=== PATIENT | female | born 1940 | race Caucasian/White ===

== ENCOUNTER 2020-06-21 11:11 | Inpatient (IN) | payer OTHER, BC, SELFPAY ==
[~2020-06-21] VITALS: Ht 157.5 cm; Wt 106.6 kg
[2020-06-21 11:11] VITALS: BP_SYST 94
[2020-06-21] MEDS ORDERED: DEXAMETHASONE SOD PHOSPHATE 4 MG/ML VIAL IVP ONE (11:15)
[2020-06-21] MEDS ORDERED: DEXAMETHASONE SOD PHOSPHATE 4 MG/ML VIAL ONE (11:23)
[2020-06-21] MEDS ORDERED: DILTIAZEM HCL 60 MG TABLET PO ONE (11:45)
[2020-06-21] MEDS ORDERED: DILTIAZEM HCL 25 MG/5 ML VIAL IVP ONE (11:45)
[2020-06-21 12:07] LABS: BASOPHILS % (AUTO) 0.8 % (0.0-2.0); HEMATOCRIT 29.7 % (36-48); HEMOGLOBIN 9.1 g/dL (12.0-16.0); LYMPHOCYTES # (AUTO) 0.3 K/uL (1.0-5.5); LYMPHOCYTES % (AUTO) 7.5 % (20.5-51.5); MEAN CORPUSCULAR HEMOGLOBIN 27 pg (27-31); MEAN CORPUSCULAR HGB CONC 31 % (32-36); MEAN CORPUSCULAR VOLUME 89 fL (79.0-98.0); MONOCYTES # (AUTO) 0.3 K/uL (0.0-1.0); MONOCYTES % (AUTO) 7.5 % (1.7-9.3); NEUTROPHILS # (AUTO) 3.4 K/uL (1.8-7.7); NEUTROPHILS % (AUTO) 84.2 % (40.0-70.0); PLATELET COUNT (AUTO) 291 K/uL (130-430); RED BLOOD CELL COUNT(AUTO) 3.32 MIL/uL (4.2-6.2); RED CELL DISTRIBUTION WIDTH 15.1 % (9.0-15.0)
[2020-06-21] MEDS ORDERED: LEVO88TA PO (13:02)
[2020-06-21] MEDS ORDERED: ZIN220 PO (13:02)
[2020-06-21] MEDS ORDERED: DOCU-144 PO (13:02)
[2020-06-21] MEDS ORDERED: DABI150C PO (13:02)
[2020-06-21] MEDS ORDERED: MELA10CA PO (13:02)
[2020-06-21] MEDS ORDERED: GUAI100L32 PO (13:02)
[2020-06-21] MEDS ORDERED: OMEP20TA20 PO (13:02)
[2020-06-21] MEDS ORDERED: CHOL200075 PO (13:02)
[2020-06-21] MEDS ORDERED: ACET325C6 PO (13:02)
[2020-06-21] MEDS ORDERED: ALL300 PO (13:02)
[2020-06-21] MEDS ORDERED: ASC500 PO (13:02)
[2020-06-21] MEDS ORDERED: FLUD0.1T PO (13:02)
[2020-06-21] MEDS ORDERED: METH4TAB17 PO (13:02)
[2020-06-21] MEDS ORDERED: DEXT1LOZ24 PO (13:02)
[2020-06-21] MEDS ORDERED: FURO20TA4 PO (13:02)
[2020-06-21] MEDS ORDERED: VENL75TA4 PO (13:02)
[2020-06-21] MEDS ORDERED: FERR325T30 PO (13:02)
[2020-06-21] MEDS ORDERED: ONDA4TAB5 PO (13:02)
[2020-06-21 13:20] LABS: ANION GAP 9 (5-15); CALCIUM 8.3 mg/dL (8.4-11.0); CHLORIDE 99 mmol/L (98-107); CREATININE 0.48 mg/dL (0.55-1.30); GLUCOSE 109 mg/dL (70-99); POTASSIUM 3.1 mmol/L (3.5-5.1); SODIUM SERUM 144 mmol/L (136-145); UREA NITROGEN, BLOOD 11 mg/dL (8-21)
[2020-06-21 13:22] LABS: ALANINE AMINOTRANSFERASE 13 U/L (12-78); ALBUMIN 2.6 g/dL (3.4-4.8); ASPARTATE AMINOTRANSFERASE 33 U/L (10-37); TOTAL BILIRUBIN 0.5 mg/dL (0.0-1.0)
[2020-06-21 13:50] LABS: C-REACTIVE PROTEIN QUANT 3.8 mg/dL (0-0.5)
[2020-06-21] MEDS ORDERED: AZITHROMYCIN 500 MG in NS 250 ML IV ONE (14:00)
[2020-06-21] MEDS ORDERED: LEVOFLOXACIN 500 MG/D5W 100 ML IV ONE (14:00)
[2020-06-21] MEDS ORDERED: AZITHROMYCIN 500 MG/VIAL (ZITHROMAX) IV ONE (15:54)
[2020-06-21] MEDS ORDERED: POTASSIUM CHLORIDE 40 MEQ, LIDOCAINE JECT 2% PF 100 MG 50 MG in NS 250 ML IV ONE (16:15)
[2020-06-21] MEDS ORDERED: BENZOCAINE/MENTHOL 1 EACH LOZENGE MM PRN (16:15)
[2020-06-21] MEDS ORDERED: ONDANSETRON 4 MG ODT TAB PO PRN (16:30)
[2020-06-21 16:41] VITALS: BP_SYST 139
[2020-06-21 17:27] LABS: INR 1.2 (0.8-1.2); PROTHROMBIN TIME 12.7 SECS (9.5-12.5)
[2020-06-21] MEDS: PANTOPRAZOLE SODIUM 40 MG TAB PO SCH (21:00)
[2020-06-21] MEDS: CEFEPIME 0.5 GM in D5W 50 ML IV SCH (21:41)
[2020-06-21] MEDS: FERROUS SULFATE 325 MG TABLET.DR PO SCH (21:42)
[2020-06-22] VITALS (18 sets, daily range): BP systolic 106–158
[2020-06-22] MEDS: LEVOTHYROXINE SODIUM 0.088 MG TABLET PO SCH (07:00)
[2020-06-22] MEDS ORDERED: VENLAFAXINE HCL 75 MG TABLET PO SCH (09:00)
[2020-06-22] MEDS: KCL 10 mEq in D5/0.45NS 1000mL 1,000 ML IV SCH ×2 (09:25→22:05)
[2020-06-22] MEDS: CEFEPIME 0.5 GM in D5W 50 ML IV SCH ×2 (09:25→22:00)
[2020-06-22] MEDS: ALLOPURINOL 300 MG TABLET (ZYLOPRIM) PO SCH (09:26)
[2020-06-22] MEDS: FERROUS SULFATE 325 MG TABLET.DR PO SCH ×2 (09:26→21:30)
[2020-06-22] MEDS: CHOLECALCIFEROL (VITAMIN D3) 2,000 UNIT TABLET PO SCH (09:26)
[2020-06-22] MEDS: DOCUSATE SODIUM 100 MG CAPSULE PO SCH (09:26)
[2020-06-22] MEDS: PANTOPRAZOLE SODIUM 40 MG TAB PO SCH ×2 (09:26→21:30)
[2020-06-22] MEDS: FLUDROCORTISONE ACETATE 0.1 MG TABLET( FLORINEF) PO SCH (09:26)
[2020-06-22] MEDS: ASCORBIC ACID 500 MG TABLET PO SCH (09:27)
[2020-06-22] MEDS ORDERED: DILTIAZEM HCL 180 MG CAP.SR.24H PO ONE (09:30)
[2020-06-22 10:15] LABS: BASOPHILS % (AUTO) 0.1 % (0.0-2.0); LYMPHOCYTES # (AUTO) 0.3 K/uL (1.0-5.5); LYMPHOCYTES % (AUTO) 6.5 % (20.5-51.5); MEAN CORPUSCULAR HEMOGLOBIN 27 pg (27-31); MEAN CORPUSCULAR HGB CONC 30 % (32-36); MEAN CORPUSCULAR VOLUME 90 fL (79.0-98.0); MONOCYTES # (AUTO) 0.3 K/uL (0.0-1.0); MONOCYTES % (AUTO) 5.8 % (1.7-9.3); NEUTROPHILS % (AUTO) 87.6 % (40.0-70.0); PLATELET COUNT (AUTO) 258 K/uL (130-430); RED BLOOD CELL COUNT(AUTO) 3.34 MIL/uL (4.2-6.2); RED CELL DISTRIBUTION WIDTH 15.2 % (9.0-15.0); WHITE BLOOD COUNT (AUTO) 4.6 K/uL (4.8-10.8)
[2020-06-22 10:47] LABS: ALANINE AMINOTRANSFERASE 13 U/L (12-78); ALBUMIN 2.3 g/dL (3.4-4.8); ANION GAP 7 (5-15); ASPARTATE AMINOTRANSFERASE 30 U/L (10-37); CALCIUM 8.4 mg/dL (8.4-11.0); CHLORIDE 99 mmol/L (98-107); GLUCOSE 116 mg/dL (70-99); POTASSIUM 3.5 mmol/L (3.5-5.1); SODIUM SERUM 144 mmol/L (136-145); THYROID STIMULATING HORMONE 0.72 uIu/mL (0.36-3.74); TOTAL BILIRUBIN 0.7 mg/dL (0.0-1.0); UREA NITROGEN, BLOOD 12 mg/dL (8-21)
[2020-06-22] MEDS: ENOXAPARIN SODIUM 40 MG/0.4 ML SYRINGE SUBCUT SCH (11:45)
[2020-06-22] MEDS ORDERED: FUROSEMIDE 20 MG/2 ML VIAL IVP ONE (11:45)
[2020-06-22 13:20] LABS: BILIRUBIN,URINE NEGATIVE (NEGATIVE); BLOOD, URINE 1+ (NEGATIVE); CLARITY/URINE CLOUDY (CLEAR); COLOR,URINE YELLOW (YELLOW); GLUCOSE,URINE NEGATIVE (NEGATIVE); KETONES,URINE 1+ (NEGATIVE); LEUKOCYTE ESTERASE ,URINE 1+ (NEGATIVE); NITRITE, URINE NEGATIVE (NEGATIVE); PH,URINE 6.5 (5.0-8.0); PROTEIN URINE NEGATIVE (NEGATIVE); UROBILINOGEN,URINE 0.2 (0.2-1.0)
[2020-06-22] MEDS ORDERED: ENOXAPARIN SODIUM 40 MG/0.4 ML SYRINGE SUBCUT ONE ×2 (13:45→14:15)
[2020-06-22 14:21] LABS: BACTERIA,URINE MANY /HPF (None Seen)
[2020-06-22] MEDS ORDERED: CEFEPIME 1 GM/VIAL (MAXIPIME) ONE (22:46)
[2020-06-23] VITALS (24 sets, daily range): BP systolic 99–147
[2020-06-23] MEDS: KCL 10 mEq in D5/0.45NS 1000mL 1,000 ML IV SCH ×2 (00:41→04:30)
[2020-06-23] MEDS: LEVOTHYROXINE SODIUM 0.088 MG TABLET PO SCH (06:48)
[2020-06-23 06:51] LABS: BASOPHILS % (AUTO) 0.1 % (0.0-2.0); HEMATOCRIT 27.5 % (36-48); HEMOGLOBIN 8.6 g/dL (12.0-16.0); LYMPHOCYTES # (AUTO) 0.3 K/uL (1.0-5.5); LYMPHOCYTES % (AUTO) 4.7 % (20.5-51.5); MEAN CORPUSCULAR HEMOGLOBIN 28 pg (27-31); MEAN CORPUSCULAR HGB CONC 31 % (32-36); MEAN CORPUSCULAR VOLUME 88 fL (79.0-98.0); MONOCYTES # (AUTO) 0.4 K/uL (0.0-1.0); MONOCYTES % (AUTO) 5.5 % (1.7-9.3); NEUTROPHILS # (AUTO) 5.9 K/uL (1.8-7.7); NEUTROPHILS % (AUTO) 89.7 % (40.0-70.0); PLATELET COUNT (AUTO) 256 K/uL (130-430); RED BLOOD CELL COUNT(AUTO) 3.13 MIL/uL (4.2-6.2); RED CELL DISTRIBUTION WIDTH 15.1 % (9.0-15.0); WHITE BLOOD COUNT (AUTO) 6.6 K/uL (4.8-10.8)
[2020-06-23 07:26] LABS: ALANINE AMINOTRANSFERASE 16 U/L (12-78); ALBUMIN 2.2 g/dL (3.4-4.8); ANION GAP 1 (5-15); ASPARTATE AMINOTRANSFERASE 31 U/L (10-37); CHLORIDE 100 mmol/L (98-107); GLUCOSE 131 mg/dL (70-99); SODIUM SERUM 144 mmol/L (136-145); TOTAL BILIRUBIN 0.6 mg/dL (0.0-1.0); UREA NITROGEN, BLOOD 11 mg/dL (8-21)
[2020-06-23 07:50] LABS: C-REACTIVE PROTEIN QUANT 3.1 mg/dL (0-0.5)
[2020-06-23] MEDS: CEFEPIME 0.5 GM in D5W 50 ML IV SCH ×2 (09:00→22:00)
[2020-06-23] MEDS: ENOXAPARIN SODIUM 40 MG/0.4 ML SYRINGE SUBCUT SCH (09:00)
[2020-06-23] MEDS: ALLOPURINOL 300 MG TABLET (ZYLOPRIM) PO SCH (09:00)
[2020-06-23] MEDS: CHOLECALCIFEROL (VITAMIN D3) 2,000 UNIT TABLET PO SCH (09:00)
[2020-06-23] MEDS: DILTIAZEM HCL 180 MG CAP.SR.24H PO SCH (09:00)
[2020-06-23] MEDS: ASCORBIC ACID 500 MG TABLET PO SCH (09:00)
[2020-06-23] MEDS: FERROUS SULFATE 325 MG TABLET.DR PO SCH ×2 (09:00→20:20)
[2020-06-23] MEDS: FLUDROCORTISONE ACETATE 0.1 MG TABLET( FLORINEF) PO SCH (09:00)
[2020-06-23] MEDS: Effexor 37.5 MG TAB PO SCH (09:00)
[2020-06-23] MEDS: DOCUSATE SODIUM 100 MG CAPSULE PO SCH (09:00)
[2020-06-23] MEDS: PANTOPRAZOLE SODIUM 40 MG TAB PO SCH ×2 (09:00→20:20)
[2020-06-23] MEDS ORDERED: POTASSIUM CHLORIDE 40 MEQ, LIDOCAINE JECT 2% PF 100 MG 50 MG in NS 250 ML IV ONE (12:00)
[2020-06-23] MEDS ORDERED: POTASSIUM CHLORIDE 20 MEQ/PKT PACKET PO ONE (18:00)
[2020-06-24] VITALS (25 sets, daily range): BP systolic 90–125
[2020-06-24] MEDS: KCL 10 mEq in D5/0.45NS 1000mL 1,000 ML IV SCH ×2 (02:59→15:12)
[2020-06-24 07:01] LABS: BASOPHILS % (AUTO) 0.1 % (0.0-2.0); HEMATOCRIT 26.4 % (36-48); HEMOGLOBIN 8.1 g/dL (12.0-16.0); LYMPHOCYTES # (AUTO) 0.3 K/uL (1.0-5.5); LYMPHOCYTES % (AUTO) 6.4 % (20.5-51.5); MEAN CORPUSCULAR HEMOGLOBIN 27 pg (27-31); MEAN CORPUSCULAR HGB CONC 31 % (32-36); MEAN CORPUSCULAR VOLUME 89 fL (79.0-98.0); MONOCYTES # (AUTO) 0.2 K/uL (0.0-1.0); NEUTROPHILS # (AUTO) 3.6 K/uL (1.8-7.7); NEUTROPHILS % (AUTO) 89.5 % (40.0-70.0); PLATELET COUNT (AUTO) 190 K/uL (130-430); RED BLOOD CELL COUNT(AUTO) 2.96 MIL/uL (4.2-6.2); RED CELL DISTRIBUTION WIDTH 15.7 % (9.0-15.0)
[2020-06-24] MEDS: LEVOTHYROXINE SODIUM 0.088 MG TABLET PO SCH (07:03)
[2020-06-24 07:45] LABS: ALANINE AMINOTRANSFERASE 13 U/L (12-78); ASPARTATE AMINOTRANSFERASE 35 U/L (10-37); CHLORIDE 101 mmol/L (98-107); GLUCOSE 153 mg/dL (70-99); POTASSIUM 3.6 mmol/L (3.5-5.1); SODIUM SERUM 142 mmol/L (136-145); TOTAL BILIRUBIN 0.4 mg/dL (0.0-1.0); UREA NITROGEN, BLOOD 12 mg/dL (8-21)
[2020-06-24 08:43] LABS: ANION GAP 0 (5-15)
[2020-06-24] MEDS: DILTIAZEM HCL 180 MG CAP.SR.24H PO SCH (10:29)
[2020-06-24] MEDS: CEFEPIME 0.5 GM in D5W 50 ML IV SCH ×2 (10:29→20:55)
[2020-06-24] MEDS: ALLOPURINOL 300 MG TABLET (ZYLOPRIM) PO SCH (10:29)
[2020-06-24] MEDS: PANTOPRAZOLE SODIUM 40 MG TAB PO SCH ×2 (10:30→20:55)
[2020-06-24] MEDS: Effexor 37.5 MG TAB PO SCH (10:30)
[2020-06-24] MEDS: ASCORBIC ACID 500 MG TABLET PO SCH (10:30)
[2020-06-24] MEDS: FERROUS SULFATE 325 MG TABLET.DR PO SCH ×2 (10:30→20:55)
[2020-06-24] MEDS: FLUDROCORTISONE ACETATE 0.1 MG TABLET( FLORINEF) PO SCH (10:30)
[2020-06-24] MEDS: DOCUSATE SODIUM 100 MG CAPSULE PO SCH (10:30)
[2020-06-24] MEDS: CHOLECALCIFEROL (VITAMIN D3) 2,000 UNIT TABLET PO SCH (10:30)
[2020-06-24] MEDS: ENOXAPARIN SODIUM 40 MG/0.4 ML SYRINGE SUBCUT SCH (10:32)
[2020-06-25] VITALS (24 sets, daily range): BP systolic 100–144
[2020-06-25] MEDS: KCL 10 mEq in D5/0.45NS 1000mL 1,000 ML IV SCH ×2 (03:00→17:09)
[2020-06-25] MEDS: LEVOTHYROXINE SODIUM 0.088 MG TABLET PO SCH ×2 (06:39→07:30)
[2020-06-25] MEDS ORDERED: ENOXAPARIN SODIUM 60 MG/0.6 ML SYRINGE SUBCUT SCH (09:00)
[2020-06-25] MEDS ORDERED: ENOXAPARIN SODIUM 80 MG/0.8 ML SYRINGE SUBCUT SCH (09:00)
[2020-06-25 09:38] LABS: ALANINE AMINOTRANSFERASE 15 U/L (12-78); ANION GAP 0 (5-15); ASPARTATE AMINOTRANSFERASE 25 U/L (10-37); CALCIUM 7.8 mg/dL (8.4-11.0); CHLORIDE 100 mmol/L (98-107); CREATININE 0.34 mg/dL (0.55-1.30); GLUCOSE 119 mg/dL (70-99); POTASSIUM 3.5 mmol/L (3.5-5.1); SODIUM SERUM 142 mmol/L (136-145); TOTAL BILIRUBIN 0.4 mg/dL (0.0-1.0); UREA NITROGEN, BLOOD 12 mg/dL (8-21)
[2020-06-25] MEDS: CHOLECALCIFEROL (VITAMIN D3) 2,000 UNIT TABLET PO SCH (10:04)
[2020-06-25] MEDS: DILTIAZEM HCL 180 MG CAP.SR.24H PO SCH (10:04)
[2020-06-25] MEDS: ALLOPURINOL 300 MG TABLET (ZYLOPRIM) PO SCH (10:04)
[2020-06-25] MEDS: DOCUSATE SODIUM 100 MG CAPSULE PO SCH (10:04)
[2020-06-25] MEDS: ASCORBIC ACID 500 MG TABLET PO SCH (10:05)
[2020-06-25] MEDS: FLUDROCORTISONE ACETATE 0.1 MG TABLET( FLORINEF) PO SCH (10:05)
[2020-06-25] MEDS: CEFEPIME 0.5 GM in D5W 50 ML IV SCH (10:05)
[2020-06-25] MEDS: FERROUS SULFATE 325 MG TABLET.DR PO SCH ×2 (10:05→21:04)
[2020-06-25] MEDS: PANTOPRAZOLE SODIUM 40 MG TAB PO SCH ×2 (10:05→21:04)
[2020-06-25] MEDS: Effexor 37.5 MG TAB PO SCH (10:06)
[2020-06-25] MEDS ORDERED: ALBUMIN HUMAN 25% 100 ML IV ONE (16:30)
[2020-06-25] MEDS: MEROPENEM 500 MG in NS 50 ML IV SCH (20:49)
[2020-06-26] VITALS (24 sets, daily range): BP systolic 111–143
[2020-06-26] MEDS: MEROPENEM 500 MG in NS 50 ML IV SCH ×3 (05:08→21:00)
[2020-06-26] MEDS: KCL 10 mEq in D5/0.45NS 1000mL 1,000 ML IV SCH ×3 (06:15→18:16)
[2020-06-26 06:49] LABS: BASOPHILS % (AUTO) 0.1 % (0.0-2.0); EOSINOPHILS % (AUTO) 0.4 % (0.0-4.0); HEMATOCRIT 25.3 % (36-48); HEMOGLOBIN 7.6 g/dL (12.0-16.0); LYMPHOCYTES # (AUTO) 0.3 K/uL (1.0-5.5); LYMPHOCYTES % (AUTO) 8.9 % (20.5-51.5); MEAN CORPUSCULAR HEMOGLOBIN 27 pg (27-31); MEAN CORPUSCULAR HGB CONC 30 % (32-36); MEAN CORPUSCULAR VOLUME 89 fL (79.0-98.0); MONOCYTES # (AUTO) 0.2 K/uL (0.0-1.0); NEUTROPHILS # (AUTO) 2.8 K/uL (1.8-7.7); NEUTROPHILS % (AUTO) 84.6 % (40.0-70.0); PLATELET COUNT (AUTO) 127 K/uL (130-430); RED BLOOD CELL COUNT(AUTO) 2.85 MIL/uL (4.2-6.2); RED CELL DISTRIBUTION WIDTH 15.6 % (9.0-15.0); WHITE BLOOD COUNT (AUTO) 3.3 K/uL (4.8-10.8)
[2020-06-26] MEDS: LEVOTHYROXINE SODIUM 0.088 MG TABLET PO SCH (07:00)
[2020-06-26 07:25] LABS: ALANINE AMINOTRANSFERASE 16 U/L (12-78); ALBUMIN 2.2 g/dL (3.4-4.8); ANION GAP 0 (5-15); ASPARTATE AMINOTRANSFERASE 20 U/L (10-37); CALCIUM 7.9 mg/dL (8.4-11.0); CHLORIDE 101 mmol/L (98-107); CREATININE 0.35 mg/dL (0.55-1.30); GLUCOSE 107 mg/dL (70-99); POTASSIUM 3.8 mmol/L (3.5-5.1); SODIUM SERUM 142 mmol/L (136-145); TOTAL BILIRUBIN 0.4 mg/dL (0.0-1.0); UREA NITROGEN, BLOOD 13 mg/dL (8-21)
[2020-06-26] MEDS ORDERED: MELATONIN 3 MG TABLET PO PRN (08:45)
[2020-06-26] MEDS: DOCUSATE SODIUM 100 MG CAPSULE PO SCH (10:34)
[2020-06-26] MEDS: DILTIAZEM HCL 180 MG CAP.SR.24H PO SCH (10:36)
[2020-06-26] MEDS: ALLOPURINOL 300 MG TABLET (ZYLOPRIM) PO SCH (10:36)
[2020-06-26] MEDS: PANTOPRAZOLE SODIUM 40 MG TAB PO SCH ×2 (10:37→21:00)
[2020-06-26] MEDS: FERROUS SULFATE 325 MG TABLET.DR PO SCH ×2 (10:37→20:59)
[2020-06-26] MEDS: CHOLECALCIFEROL (VITAMIN D3) 2,000 UNIT TABLET PO SCH (10:37)
[2020-06-26] MEDS: FLUDROCORTISONE ACETATE 0.1 MG TABLET( FLORINEF) PO SCH (10:37)
[2020-06-26] MEDS: ASCORBIC ACID 500 MG TABLET PO SCH (10:37)
[2020-06-26] MEDS: Effexor 37.5 MG TAB PO SCH (10:38)
[2020-06-26] MEDS: ENOXAPARIN SODIUM 40 MG/0.4 ML SYRINGE SUBCUT SCH (11:02)
[2020-06-26] MEDS ORDERED: FUROSEMIDE 40 MG/4 ML VIAL IVP ONE (17:00)
[2020-06-26] MEDS ORDERED: ALBUMIN HUMAN 25% 100 ML IV ONE (17:15)
[2020-06-26] MEDS ORDERED: FUROSEMIDE 40 MG/4 ML VIAL ONE (18:04)
[2020-06-27] VITALS (25 sets, daily range): BP systolic 94–132
[2020-06-27] MEDS: MEROPENEM 500 MG in NS 50 ML IV SCH ×3 (06:05→22:54)
[2020-06-27] MEDS: LEVOTHYROXINE SODIUM 0.088 MG TABLET PO SCH (06:09)
[2020-06-27 07:00] LABS: BASOPHILS % (AUTO) 0.2 % (0.0-2.0); EOSINOPHILS # (AUTO) 0.1 K/uL (0.0-0.4); EOSINOPHILS % (AUTO) 1.7 % (0.0-4.0); HEMATOCRIT 24.8 % (36-48); HEMOGLOBIN 7.5 g/dL (12.0-16.0); LYMPHOCYTES # (AUTO) 0.4 K/uL (1.0-5.5); LYMPHOCYTES % (AUTO) 9.6 % (20.5-51.5); MEAN CORPUSCULAR HEMOGLOBIN 27 pg (27-31); MEAN CORPUSCULAR HGB CONC 30 % (32-36); MEAN CORPUSCULAR VOLUME 89 fL (79.0-98.0); MONOCYTES # (AUTO) 0.3 K/uL (0.0-1.0); MONOCYTES % (AUTO) 8.1 % (1.7-9.3); NEUTROPHILS % (AUTO) 80.4 % (40.0-70.0); PLATELET COUNT (AUTO) 114 K/uL (130-430); RED BLOOD CELL COUNT(AUTO) 2.79 MIL/uL (4.2-6.2); RED CELL DISTRIBUTION WIDTH 15.4 % (9.0-15.0); WHITE BLOOD COUNT (AUTO) 3.8 K/uL (4.8-10.8)
[2020-06-27 07:55] LABS: TOTAL IRON BIND. CAPACITY 113 ug/dL (250-450)
[2020-06-27 07:59] LABS: ALANINE AMINOTRANSFERASE 13 U/L (12-78); ALBUMIN 2.4 g/dL (3.4-4.8); ANION GAP 0 (5-15); ASPARTATE AMINOTRANSFERASE 17 U/L (10-37); CALCIUM 8.1 mg/dL (8.4-11.0); CHLORIDE 99 mmol/L (98-107); CREATININE 0.31 mg/dL (0.55-1.30); GLUCOSE 98 mg/dL (70-99); POTASSIUM 3.8 mmol/L (3.5-5.1); SODIUM SERUM 142 mmol/L (136-145); TOTAL BILIRUBIN 0.4 mg/dL (0.0-1.0); UREA NITROGEN, BLOOD 13 mg/dL (8-21)
[2020-06-27] MEDS: ALLOPURINOL 300 MG TABLET (ZYLOPRIM) PO SCH (08:52)
[2020-06-27] MEDS: CHOLECALCIFEROL (VITAMIN D3) 2,000 UNIT TABLET PO SCH (08:53)
[2020-06-27] MEDS: DILTIAZEM HCL 180 MG CAP.SR.24H PO SCH (08:53)
[2020-06-27] MEDS: FERROUS SULFATE 325 MG TABLET.DR PO SCH ×2 (08:54→20:22)
[2020-06-27] MEDS: ASCORBIC ACID 500 MG TABLET PO SCH (08:54)
[2020-06-27] MEDS: DOCUSATE SODIUM 100 MG CAPSULE PO SCH (08:54)
[2020-06-27] MEDS: FLUDROCORTISONE ACETATE 0.1 MG TABLET( FLORINEF) PO SCH (08:54)
[2020-06-27] MEDS: PANTOPRAZOLE SODIUM 40 MG TAB PO SCH ×2 (08:54→20:22)
[2020-06-27] MEDS: ENOXAPARIN SODIUM 40 MG/0.4 ML SYRINGE SUBCUT SCH (08:55)
[2020-06-27] MEDS: Effexor 37.5 MG TAB PO SCH (08:58)
[2020-06-27] MEDS: KCL 10 mEq in D5/0.45NS 1000mL 1,000 ML IV SCH ×2 (14:00→22:55)
[2020-06-28] VITALS (24 sets, daily range): BP systolic 94–142
[2020-06-28] MEDS: LEVOTHYROXINE SODIUM 0.088 MG TABLET PO SCH (06:40)
[2020-06-28] MEDS: MEROPENEM 500 MG in NS 50 ML IV SCH ×3 (06:40→21:56)
[2020-06-28 07:05] LABS: ALANINE AMINOTRANSFERASE 10 U/L (12-78); ASPARTATE AMINOTRANSFERASE 17 U/L (10-37); CREATININE 0.31 mg/dL (0.55-1.30); GLUCOSE 94 mg/dL (70-99); LACTATE DEHYDROGENASE 182 U/L (81-234); POTASSIUM 4.2 mmol/L (3.5-5.1); SODIUM SERUM 142 mmol/L (136-145); TOTAL BILIRUBIN 0.2 mg/dL (0.0-1.0); UREA NITROGEN, BLOOD 13 mg/dL (8-21)
[2020-06-28 07:16] LABS: CHLORIDE 100 mmol/L (98-107)
[2020-06-28 07:19] LABS: ANION GAP < 3 (5-15)
[2020-06-28 07:31] LABS: C-REACTIVE PROTEIN QUANT 4.8 mg/dL (0-0.5)
[2020-06-28 08:02] LABS: BASOPHILS % (AUTO) 0.3 % (0.0-2.0); EOSINOPHILS # (AUTO) 0.4 K/uL (0.0-0.4); EOSINOPHILS % (AUTO) 9.6 % (0.0-4.0); HEMATOCRIT 23.8 % (36-48); LYMPHOCYTES # (AUTO) 0.3 K/uL (1.0-5.5); LYMPHOCYTES % (AUTO) 7.8 % (20.5-51.5); MEAN CORPUSCULAR HEMOGLOBIN 28 pg (27-31); MEAN CORPUSCULAR HGB CONC 32 % (32-36); MEAN CORPUSCULAR VOLUME 90 fL (79.0-98.0); MONOCYTES # (AUTO) 0.2 K/uL (0.0-1.0); MONOCYTES % (AUTO) 5.8 % (1.7-9.3); NEUTROPHILS # (AUTO) 3.1 K/uL (1.8-7.7); NEUTROPHILS % (AUTO) 76.5 % (40.0-70.0); RED BLOOD CELL COUNT(AUTO) 2.65 MIL/uL (4.2-6.2); RED CELL DISTRIBUTION WIDTH 15.9 % (9.0-15.0); WHITE BLOOD COUNT (AUTO) 4.1 K/uL (4.8-10.8)
[2020-06-28 08:14] LABS: FOLATE (FOLIC ACID) 6.2 ng/mL (>3.0)
[2020-06-28 08:27] LABS: HEMOGLOBIN 7.5 g/dL (12.0-16.0)
[2020-06-28] MEDS ORDERED: COMMUNICATION ORDER XX ONE (09:00)
[2020-06-28] MEDS: DOCUSATE SODIUM 100 MG CAPSULE PO SCH (11:12)
[2020-06-28] MEDS: FERROUS SULFATE 325 MG TABLET.DR PO SCH ×2 (11:12→21:56)
[2020-06-28] MEDS: ALLOPURINOL 300 MG TABLET (ZYLOPRIM) PO SCH (11:12)
[2020-06-28] MEDS: FLUDROCORTISONE ACETATE 0.1 MG TABLET( FLORINEF) PO SCH (11:12)
[2020-06-28] MEDS: PANTOPRAZOLE SODIUM 40 MG TAB PO SCH ×2 (11:13→21:56)
[2020-06-28] MEDS: CHOLECALCIFEROL (VITAMIN D3) 2,000 UNIT TABLET PO SCH (11:13)
[2020-06-28] MEDS: DILTIAZEM HCL 180 MG CAP.SR.24H PO SCH (11:15)
[2020-06-28] MEDS: ENOXAPARIN SODIUM 40 MG/0.4 ML SYRINGE SUBCUT SCH (11:15)
[2020-06-28] MEDS: Effexor 37.5 MG TAB PO SCH (11:17)
[2020-06-28] MEDS: KCL 10 mEq in D5/0.45NS 1000mL 1,000 ML IV SCH (11:18)
[2020-06-28] MEDS: ASCORBIC ACID 500 MG TABLET PO SCH (12:10)
[2020-06-28 12:45] LABS: PLATELET COUNT (AUTO) 180 K/uL (130-430)
[2020-06-28] MEDS ORDERED: FUROSEMIDE 40 MG/4 ML VIAL IVP ONE (18:00)
[2020-06-29] VITALS (24 sets, daily range): BP systolic 100–136
[2020-06-29] MEDS: KCL 10 mEq in D5/0.45NS 1000mL 1,000 ML IV SCH ×2 (00:36→13:38)
[2020-06-29] MEDS: MEROPENEM 500 MG in NS 50 ML IV SCH ×2 (06:03→21:09)
[2020-06-29] MEDS: LEVOTHYROXINE SODIUM 0.088 MG TABLET PO SCH (06:03)
[2020-06-29 07:39] LABS: BASOPHILS % (AUTO) 0.2 % (0.0-2.0); EOSINOPHILS % (AUTO) 0.6 % (0.0-4.0); HEMATOCRIT 28.1 % (36-48); HEMOGLOBIN 8.4 g/dL (12.0-16.0); LYMPHOCYTES # (AUTO) 0.4 K/uL (1.0-5.5); LYMPHOCYTES % (AUTO) 6.4 % (20.5-51.5); MEAN CORPUSCULAR HEMOGLOBIN 27 pg (27-31); MEAN CORPUSCULAR HGB CONC 30 % (32-36); MEAN CORPUSCULAR VOLUME 89 fL (79.0-98.0); MONOCYTES # (AUTO) 0.5 K/uL (0.0-1.0); MONOCYTES % (AUTO) 8.5 % (1.7-9.3); NEUTROPHILS # (AUTO) 4.7 K/uL (1.8-7.7); NEUTROPHILS % (AUTO) 84.3 % (40.0-70.0); PLATELET COUNT (AUTO) 153 K/uL (130-430); RED BLOOD CELL COUNT(AUTO) 3.17 MIL/uL (4.2-6.2); RED CELL DISTRIBUTION WIDTH 15.8 % (9.0-15.0); WHITE BLOOD COUNT (AUTO) 5.6 K/uL (4.8-10.8)
[2020-06-29 08:26] LABS: ALANINE AMINOTRANSFERASE 16 U/L (12-78); ALBUMIN 2.1 g/dL (3.4-4.8); ASPARTATE AMINOTRANSFERASE 17 U/L (10-37); CALCIUM 7.8 mg/dL (8.4-11.0); CHLORIDE 99 mmol/L (98-107); CREATININE 0.36 mg/dL (0.55-1.30); GLUCOSE 100 mg/dL (70-99); POTASSIUM 4.1 mmol/L (3.5-5.1); SODIUM SERUM 142 mmol/L (136-145); TOTAL BILIRUBIN 0.4 mg/dL (0.0-1.0); UREA NITROGEN, BLOOD 12 mg/dL (8-21)
[2020-06-29 08:56] LABS: C-REACTIVE PROTEIN QUANT 4.4 mg/dL (0-0.5)
[2020-06-29 09:12] LABS: ANION GAP < 3 (5-15)
[2020-06-29] MEDS: DOCUSATE SODIUM 100 MG CAPSULE PO SCH (10:10)
[2020-06-29] MEDS: DILTIAZEM HCL 180 MG CAP.SR.24H PO SCH (10:10)
[2020-06-29] MEDS: CHOLECALCIFEROL (VITAMIN D3) 2,000 UNIT TABLET PO SCH (10:10)
[2020-06-29] MEDS: FUROSEMIDE 40 MG/4 ML VIAL IVP SCH (10:10)
[2020-06-29] MEDS: FERROUS SULFATE 325 MG TABLET.DR PO SCH ×2 (10:11→21:09)
[2020-06-29] MEDS: FLUDROCORTISONE ACETATE 0.1 MG TABLET( FLORINEF) PO SCH (10:11)
[2020-06-29] MEDS: ASCORBIC ACID 500 MG TABLET PO SCH (10:11)
[2020-06-29] MEDS: ALLOPURINOL 300 MG TABLET (ZYLOPRIM) PO SCH (10:11)
[2020-06-29] MEDS: PANTOPRAZOLE SODIUM 40 MG TAB PO SCH ×2 (10:11→21:09)
[2020-06-29] MEDS: Effexor 37.5 MG TAB PO SCH (10:12)
[2020-06-29] MEDS: ENOXAPARIN SODIUM 40 MG/0.4 ML SYRINGE SUBCUT SCH (10:17)
[2020-06-30] VITALS (22 sets, daily range): BP systolic 116–152
[2020-06-30] MEDS: KCL 10 mEq in D5/0.45NS 1000mL 1,000 ML IV SCH ×2 (03:50→17:10)
[2020-06-30] MEDS: MEROPENEM 500 MG in NS 50 ML IV SCH ×3 (05:22→22:36)
[2020-06-30] MEDS: LEVOTHYROXINE SODIUM 0.088 MG TABLET PO SCH (06:05)
[2020-06-30 07:50] LABS: ALANINE AMINOTRANSFERASE 10 U/L (12-78); ALBUMIN 1.9 g/dL (3.4-4.8); ASPARTATE AMINOTRANSFERASE 21 U/L (10-37); CALCIUM 7.6 mg/dL (8.4-11.0); CREATININE 0.31 mg/dL (0.55-1.30); GLUCOSE 94 mg/dL (70-99); SODIUM SERUM 142 mmol/L (136-145); TOTAL BILIRUBIN 0.4 mg/dL (0.0-1.0); UREA NITROGEN, BLOOD 12 mg/dL (8-21)
[2020-06-30 08:00] LABS: CHLORIDE 98 mmol/L (98-107)
[2020-06-30 08:05] LABS: ANION GAP < 3 (5-15)
[2020-06-30 08:16] LABS: C-REACTIVE PROTEIN QUANT 5.8 mg/dL (0-0.5)
[2020-06-30] MEDS: DOCUSATE SODIUM 100 MG/10 ML UDC PO SCH ×2 (08:35→08:37)
[2020-06-30] MEDS: CHOLECALCIFEROL (VITAMIN D3) 2,000 UNIT TABLET PO SCH (08:35)
[2020-06-30] MEDS: FLUDROCORTISONE ACETATE 0.1 MG TABLET( FLORINEF) PO SCH (08:35)
[2020-06-30] MEDS: ALLOPURINOL 300 MG TABLET (ZYLOPRIM) PO SCH (08:36)
[2020-06-30] MEDS: PANTOPRAZOLE SODIUM 40 MG TAB PO SCH ×2 (08:36→22:37)
[2020-06-30] MEDS: ASCORBIC ACID 500 MG TABLET PO SCH (08:36)
[2020-06-30] MEDS: FERROUS SULFATE 325 MG TABLET.DR PO SCH ×2 (08:36→22:33)
[2020-06-30] MEDS: DOCUSATE SODIUM 100 MG CAPSULE PO SCH (08:36)
[2020-06-30] MEDS: ENOXAPARIN SODIUM 40 MG/0.4 ML SYRINGE SUBCUT SCH (08:42)
[2020-06-30] MEDS: Effexor 37.5 MG TAB PO SCH (08:42)
[2020-06-30] MEDS: FUROSEMIDE 40 MG/4 ML VIAL IVP SCH (09:00)
[2020-06-30] MEDS: DILTIAZEM HCL 180 MG CAP.SR.24H PO SCH (09:00)
[2020-06-30] MEDS: ALPRAZolam 0.25 MG TABLET PO PRN (14:15)
[2020-07-01] VITALS (18 sets, daily range): BP systolic 95–160
[2020-07-01] MEDS: MEROPENEM 500 MG in NS 50 ML IV SCH ×3 (05:46→21:46)
[2020-07-01] MEDS: LEVOTHYROXINE SODIUM 0.088 MG TABLET PO SCH (07:00)
[2020-07-01 08:01] LABS: BASOPHILS % (AUTO) 0.3 % (0.0-2.0); EOSINOPHILS % (AUTO) 0.5 % (0.0-4.0); HEMOGLOBIN 8.4 g/dL (12.0-16.0); LYMPHOCYTES # (AUTO) 0.5 K/uL (1.0-5.5); LYMPHOCYTES % (AUTO) 7.8 % (20.5-51.5); MEAN CORPUSCULAR HEMOGLOBIN 26 pg (27-31); MEAN CORPUSCULAR HGB CONC 30 % (32-36); MEAN CORPUSCULAR VOLUME 88 fL (79.0-98.0); MONOCYTES # (AUTO) 0.5 K/uL (0.0-1.0); MONOCYTES % (AUTO) 7.8 % (1.7-9.3); NEUTROPHILS # (AUTO) 5.6 K/uL (1.8-7.7); NEUTROPHILS % (AUTO) 83.6 % (40.0-70.0); PLATELET COUNT (AUTO) 127 K/uL (130-430); RED CELL DISTRIBUTION WIDTH 15.6 % (9.0-15.0); WHITE BLOOD COUNT (AUTO) 6.7 K/uL (4.8-10.8)
[2020-07-01 08:19] LABS: ALANINE AMINOTRANSFERASE 10 U/L (12-78); ALBUMIN 1.7 g/dL (3.4-4.8); ASPARTATE AMINOTRANSFERASE 16 U/L (10-37); CALCIUM 7.8 mg/dL (8.4-11.0); CHLORIDE 98 mmol/L (98-107); CREATININE 0.33 mg/dL (0.55-1.30); GLUCOSE 96 mg/dL (70-99); POTASSIUM 4.1 mmol/L (3.5-5.1); SODIUM SERUM 142 mmol/L (136-145); TOTAL BILIRUBIN 0.5 mg/dL (0.0-1.0); UREA NITROGEN, BLOOD 12 mg/dL (8-21)
[2020-07-01 08:33] LABS: ANION GAP < 3 (5-15)
[2020-07-01 08:44] LABS: C-REACTIVE PROTEIN QUANT 7.5 mg/dL (0-0.5)
[2020-07-01] MEDS: DOCUSATE SODIUM 100 MG/10 ML UDC PO SCH (09:00)
[2020-07-01] MEDS: ALLOPURINOL 300 MG TABLET (ZYLOPRIM) PO SCH (09:43)
[2020-07-01] MEDS: ASCORBIC ACID 500 MG TABLET PO SCH (09:44)
[2020-07-01] MEDS: CHOLECALCIFEROL (VITAMIN D3) 2,000 UNIT TABLET PO SCH (09:44)
[2020-07-01] MEDS: FERROUS SULFATE 325 MG TABLET.DR PO SCH ×2 (09:44→21:47)
[2020-07-01] MEDS: PANTOPRAZOLE SODIUM 40 MG TAB PO SCH ×2 (09:44→21:44)
[2020-07-01] MEDS: DOCUSATE SODIUM 100 MG CAPSULE PO SCH (09:44)
[2020-07-01] MEDS: FLUDROCORTISONE ACETATE 0.1 MG TABLET( FLORINEF) PO SCH (09:45)
[2020-07-01] MEDS: ENOXAPARIN SODIUM 40 MG/0.4 ML SYRINGE SUBCUT SCH (09:46)
[2020-07-01] MEDS: FUROSEMIDE 40 MG/4 ML VIAL IVP SCH (09:47)
[2020-07-01] MEDS: DILTIAZEM HCL 180 MG CAP.SR.24H PO SCH (09:49)
[2020-07-01] MEDS: Effexor 37.5 MG TAB PO SCH (09:58)
[2020-07-01] MEDS: ALPRAZolam 0.25 MG TABLET PO PRN ×2 (10:05→14:22)
[2020-07-01] MEDS: KCL 10 mEq in D5/0.45NS 1000mL 1,000 ML IV SCH ×2 (11:56→23:31)
[2020-07-01] MEDS: ACETAMINOPHEN 325 MG TABLET PO PRN (14:20)
[2020-07-02] VITALS (21 sets, daily range): BP systolic 101–155
[2020-07-02] MEDS: ALPRAZolam 0.25 MG TABLET PO PRN ×2 (00:59→11:42)
[2020-07-02] MEDS: MEROPENEM 500 MG in NS 50 ML IV SCH (05:22)
[2020-07-02] MEDS: LEVOTHYROXINE SODIUM 0.088 MG TABLET PO SCH (07:00)
[2020-07-02 07:20] LABS: BASOPHILS % (AUTO) 0.2 % (0.0-2.0); EOSINOPHILS % (AUTO) 0.2 % (0.0-4.0); HEMATOCRIT 27.2 % (36-48); HEMOGLOBIN 8.3 g/dL (12.0-16.0); LYMPHOCYTES # (AUTO) 0.6 K/uL (1.0-5.5); LYMPHOCYTES % (AUTO) 6.7 % (20.5-51.5); MEAN CORPUSCULAR HEMOGLOBIN 27 pg (27-31); MEAN CORPUSCULAR HGB CONC 30 % (32-36); MEAN CORPUSCULAR VOLUME 87 fL (79.0-98.0); MONOCYTES # (AUTO) 0.6 K/uL (0.0-1.0); MONOCYTES % (AUTO) 6.1 % (1.7-9.3); NEUTROPHILS # (AUTO) 8.3 K/uL (1.8-7.7); NEUTROPHILS % (AUTO) 86.8 % (40.0-70.0); PLATELET COUNT (AUTO) 176 K/uL (130-430); RED BLOOD CELL COUNT(AUTO) 3.11 MIL/uL (4.2-6.2); RED CELL DISTRIBUTION WIDTH 15.5 % (9.0-15.0); WHITE BLOOD COUNT (AUTO) 9.6 K/uL (4.8-10.8)
[2020-07-02 07:55] LABS: ALANINE AMINOTRANSFERASE 15 U/L (12-78); ALBUMIN 1.8 g/dL (3.4-4.8); ASPARTATE AMINOTRANSFERASE 18 U/L (10-37); CALCIUM 7.6 mg/dL (8.4-11.0); CHLORIDE 98 mmol/L (98-107); CREATININE 0.34 mg/dL (0.55-1.30); GLUCOSE 139 mg/dL (70-99); POTASSIUM 4.1 mmol/L (3.5-5.1); SODIUM SERUM 142 mmol/L (136-145); TOTAL BILIRUBIN 0.4 mg/dL (0.0-1.0); UREA NITROGEN, BLOOD 14 mg/dL (8-21)
[2020-07-02 07:57] LABS: ANION GAP < 3 (5-15)
[2020-07-02] MEDS: FUROSEMIDE 40 MG/4 ML VIAL IVP SCH (09:00)
[2020-07-02] MEDS: ASCORBIC ACID 500 MG TABLET PO SCH (09:00)
[2020-07-02] MEDS: Effexor 37.5 MG TAB PO SCH (09:00)
[2020-07-02] MEDS: DILTIAZEM HCL 180 MG CAP.SR.24H PO SCH (09:00)
[2020-07-02] MEDS: ENOXAPARIN SODIUM 40 MG/0.4 ML SYRINGE SUBCUT SCH (09:00)
[2020-07-02] MEDS: DOCUSATE SODIUM 100 MG/10 ML UDC PO SCH (09:00)
[2020-07-02] MEDS: ALLOPURINOL 300 MG TABLET (ZYLOPRIM) PO SCH (09:00)
[2020-07-02] MEDS: FERROUS SULFATE 325 MG TABLET.DR PO SCH ×2 (09:00→21:00)
[2020-07-02] MEDS: CHOLECALCIFEROL (VITAMIN D3) 2,000 UNIT TABLET PO SCH (09:00)
[2020-07-02] MEDS: PANTOPRAZOLE SODIUM 40 MG TAB PO SCH ×2 (09:00→21:00)
[2020-07-02] MEDS: DOCUSATE SODIUM 100 MG CAPSULE PO SCH (09:00)
[2020-07-02] MEDS: FLUDROCORTISONE ACETATE 0.1 MG TABLET( FLORINEF) PO SCH (09:00)
[2020-07-02 09:09] LABS: C-REACTIVE PROTEIN QUANT 9.3 mg/dL (0-0.5)
[2020-07-02] MEDS: ACETAMINOPHEN 325 MG TABLET PO PRN (11:42)
[2020-07-02] MEDS: guaiFENesin 200 MG/10 ML UDC PO PRN (11:42)
[2020-07-02] MEDS ORDERED: DEXAMETHASONE SOD PHOSPHATE 10 MG/ML VIAL ONE (13:19)
[2020-07-02] MEDS ORDERED: DEXAMETHASONE SOD PHOSPHATE 10 MG/ML VIAL IVP ONE (14:00)
[2020-07-02] MEDS ORDERED: MAGNESIUM SULFATE 1 GM in NS 100 ML IV ONE (17:45)
[2020-07-02] MEDS ORDERED: MAGNESIUM SULFATE 1 GM/2 ML VIAL ONE (20:42)
[2020-07-03] VITALS (25 sets, daily range): BP systolic 109–165
[2020-07-03] MEDS: LEVOTHYROXINE SODIUM 0.088 MG TABLET PO SCH (07:00)
[2020-07-03 07:24] LABS: BASOPHILS # (AUTO) 0.1 K/uL (0.0-0.2); BASOPHILS % (AUTO) 0.8 % (0.0-2.0); HEMATOCRIT 26.7 % (36-48); HEMOGLOBIN 8.1 g/dL (12.0-16.0); LYMPHOCYTES # (AUTO) 0.4 K/uL (1.0-5.5); MEAN CORPUSCULAR HEMOGLOBIN 26 pg (27-31); MEAN CORPUSCULAR HGB CONC 30 % (32-36); MEAN CORPUSCULAR VOLUME 87 fL (79.0-98.0); MONOCYTES # (AUTO) 0.2 K/uL (0.0-1.0); NEUTROPHILS # (AUTO) 5.3 K/uL (1.8-7.7); NEUTROPHILS % (AUTO) 88.2 % (40.0-70.0); PLATELET COUNT (AUTO) 148 K/uL (130-430); RED BLOOD CELL COUNT(AUTO) 3.06 MIL/uL (4.2-6.2); RED CELL DISTRIBUTION WIDTH 16.1 % (9.0-15.0)
[2020-07-03 07:29] LABS: ALANINE AMINOTRANSFERASE 14 U/L (12-78); ALBUMIN 1.8 g/dL (3.4-4.8); ANION GAP -1 (5-15); ASPARTATE AMINOTRANSFERASE 14 U/L (10-37); CHLORIDE 97 mmol/L (98-107); CREATININE 0.37 mg/dL (0.55-1.30); GLUCOSE 142 mg/dL (70-99); POTASSIUM 4.5 mmol/L (3.5-5.1); SODIUM SERUM 141 mmol/L (136-145); TOTAL BILIRUBIN 0.4 mg/dL (0.0-1.0); UREA NITROGEN, BLOOD 16 mg/dL (8-21)
[2020-07-03] MEDS: DOCUSATE SODIUM 100 MG/10 ML UDC PO SCH (09:00)
[2020-07-03] MEDS ORDERED: DEXAMETHASONE SOD PHOSPHATE 10 MG/ML VIAL IVP SCH (09:00)
[2020-07-03] MEDS: FLUDROCORTISONE ACETATE 0.1 MG TABLET( FLORINEF) PO SCH (09:00)
[2020-07-03] MEDS: CHOLECALCIFEROL (VITAMIN D3) 2,000 UNIT TABLET PO SCH (09:00)
[2020-07-03] MEDS: FERROUS SULFATE 325 MG TABLET.DR PO SCH ×2 (09:00→23:37)
[2020-07-03] MEDS: DILTIAZEM HCL 180 MG CAP.SR.24H PO SCH (09:00)
[2020-07-03] MEDS: ALLOPURINOL 300 MG TABLET (ZYLOPRIM) PO SCH (09:00)
[2020-07-03] MEDS: FUROSEMIDE 40 MG/4 ML VIAL IVP SCH ×3 (09:00→23:38)
[2020-07-03] MEDS: Effexor 37.5 MG TAB PO SCH (09:00)
[2020-07-03] MEDS: methylPREDNISolone SOD SUCC 40 MG/ML VIAL IVP SCH ×2 (09:00→23:37)
[2020-07-03] MEDS: PANTOPRAZOLE SODIUM 40 MG TAB PO SCH ×2 (09:00→23:37)
[2020-07-03] MEDS: ASCORBIC ACID 500 MG TABLET PO SCH (09:00)
[2020-07-03] MEDS: ENOXAPARIN SODIUM 40 MG/0.4 ML SYRINGE SUBCUT SCH (09:00)
[2020-07-03] MEDS: guaiFENesin 200 MG/10 ML UDC PO PRN (11:48)
[2020-07-03] MEDS: ACETAMINOPHEN 325 MG TABLET PO PRN (11:48)
[2020-07-03] MEDS: CEFEPIME 0.5 GM in D5W 50 ML IV SCH ×2 (13:33→23:37)
[2020-07-03] MEDS: KCL 10 mEq in D5/0.45NS 1000mL 1,000 ML IV SCH ×2 (13:34→23:36)
[2020-07-03] MEDS ORDERED: ALBUMIN HUMAN 25% 100 ML IV ONE (17:45)
[2020-07-04] VITALS (24 sets, daily range): BP systolic 105–163
[2020-07-04] MEDS: LEVOTHYROXINE SODIUM 0.088 MG TABLET PO SCH (06:02)
[2020-07-04] MEDS: FUROSEMIDE 40 MG/4 ML VIAL IVP SCH ×3 (06:02→20:36)
[2020-07-04 07:05] LABS: ALANINE AMINOTRANSFERASE 19 U/L (12-78); ALBUMIN 1.9 g/dL (3.4-4.8); ASPARTATE AMINOTRANSFERASE 9 U/L (10-37); CHLORIDE 97 mmol/L (98-107); CREATININE 0.35 mg/dL (0.55-1.30); GLUCOSE 134 mg/dL (70-99); POTASSIUM 4.6 mmol/L (3.5-5.1); SODIUM SERUM 140 mmol/L (136-145); TOTAL BILIRUBIN 0.4 mg/dL (0.0-1.0); UREA NITROGEN, BLOOD 16 mg/dL (8-21)
[2020-07-04 07:37] LABS: BASOPHILS # (AUTO) 0.1 K/uL (0.0-0.2); BASOPHILS % (AUTO) 1.1 % (0.0-2.0); EOSINOPHILS % (AUTO) 0.2 % (0.0-4.0); HEMATOCRIT 24.6 % (36-48); HEMOGLOBIN 8.1 g/dL (12.0-16.0); LYMPHOCYTES # (AUTO) 0.4 K/uL (1.0-5.5); MEAN CORPUSCULAR HEMOGLOBIN 28 pg (27-31); MEAN CORPUSCULAR HGB CONC 33 % (32-36); MEAN CORPUSCULAR VOLUME 87 fL (79.0-98.0); MONOCYTES # (AUTO) 0.1 K/uL (0.0-1.0); MONOCYTES % (AUTO) 2.7 % (1.7-9.3); NEUTROPHILS # (AUTO) 4.9 K/uL (1.8-7.7); PLATELET COUNT (AUTO) 262 K/uL (130-430); RED BLOOD CELL COUNT(AUTO) 2.84 MIL/uL (4.2-6.2); WHITE BLOOD COUNT (AUTO) 5.6 K/uL (4.8-10.8)
[2020-07-04] MEDS: ASCORBIC ACID 500 MG TABLET PO SCH (07:45)
[2020-07-04] MEDS: DOCUSATE SODIUM 100 MG/10 ML UDC PO SCH (07:45)
[2020-07-04] MEDS: FLUDROCORTISONE ACETATE 0.1 MG TABLET( FLORINEF) PO SCH (07:45)
[2020-07-04] MEDS: PANTOPRAZOLE SODIUM 40 MG TAB PO SCH ×2 (07:45→20:35)
[2020-07-04] MEDS: FOLIC ACID 1 MG TABLET PO SCH (07:45)
[2020-07-04] MEDS: DILTIAZEM HCL 180 MG CAP.SR.24H PO SCH (07:45)
[2020-07-04] MEDS: CYANOCOBALAMIN 1000 mCg TABLET PO SCH (07:45)
[2020-07-04] MEDS: Effexor 37.5 MG TAB PO SCH (07:45)
[2020-07-04] MEDS: FERROUS SULFATE 325 MG TABLET.DR PO SCH ×2 (07:45→20:35)
[2020-07-04] MEDS: CHOLECALCIFEROL (VITAMIN D3) 2,000 UNIT TABLET PO SCH (07:45)
[2020-07-04] MEDS: ALLOPURINOL 300 MG TABLET (ZYLOPRIM) PO SCH (07:46)
[2020-07-04] MEDS: methylPREDNISolone SOD SUCC 40 MG/ML VIAL IVP SCH ×2 (07:46→20:35)
[2020-07-04] MEDS: ENOXAPARIN SODIUM 40 MG/0.4 ML SYRINGE SUBCUT SCH (07:47)
[2020-07-04 08:20] LABS: ANION GAP 0 (5-15)
[2020-07-04] MEDS: CEFEPIME 0.5 GM in D5W 50 ML IV SCH ×2 (10:43→20:35)
[2020-07-04] MEDS: KCL 10 mEq in D5/0.45NS 1000mL 1,000 ML IV SCH (20:17)
[2020-07-05] VITALS (22 sets, daily range): BP systolic 115–154
[2020-07-05] MEDS: LEVOTHYROXINE SODIUM 0.088 MG TABLET PO SCH (05:18)
[2020-07-05] MEDS: FUROSEMIDE 40 MG/4 ML VIAL IVP SCH ×3 (05:18→21:02)
[2020-07-05 07:10] LABS: BASOPHILS % (AUTO) 0.2 % (0.0-2.0); EOSINOPHILS # (AUTO) 0.1 K/uL (0.0-0.4); EOSINOPHILS % (AUTO) 1.1 % (0.0-4.0); HEMOGLOBIN 7.6 g/dL (12.0-16.0); LYMPHOCYTES # (AUTO) 0.3 K/uL (1.0-5.5); MEAN CORPUSCULAR HEMOGLOBIN 26 pg (27-31); MEAN CORPUSCULAR HGB CONC 31 % (32-36); MEAN CORPUSCULAR VOLUME 86 fL (79.0-98.0); MONOCYTES # (AUTO) 0.2 K/uL (0.0-1.0); MONOCYTES % (AUTO) 4.9 % (1.7-9.3); NEUTROPHILS # (AUTO) 4.4 K/uL (1.8-7.7); NEUTROPHILS % (AUTO) 87.8 % (40.0-70.0); PLATELET COUNT (AUTO) 202 K/uL (130-430); RED BLOOD CELL COUNT(AUTO) 2.89 MIL/uL (4.2-6.2); RED CELL DISTRIBUTION WIDTH 15.7 % (9.0-15.0); WHITE BLOOD COUNT (AUTO) 5.1 K/uL (4.8-10.8)
[2020-07-05] MEDS: methylPREDNISolone SOD SUCC 40 MG/ML VIAL IVP SCH (08:07)
[2020-07-05] MEDS: CEFEPIME 0.5 GM in D5W 50 ML IV SCH (08:07)
[2020-07-05] MEDS: DOCUSATE SODIUM 100 MG/10 ML UDC PO SCH (08:08)
[2020-07-05] MEDS: FOLIC ACID 1 MG TABLET PO SCH (08:08)
[2020-07-05] MEDS: ALLOPURINOL 300 MG TABLET (ZYLOPRIM) PO SCH (08:08)
[2020-07-05] MEDS: FLUDROCORTISONE ACETATE 0.1 MG TABLET( FLORINEF) PO SCH (08:08)
[2020-07-05] MEDS: DILTIAZEM HCL 180 MG CAP.SR.24H PO SCH (08:08)
[2020-07-05] MEDS: ASCORBIC ACID 500 MG TABLET PO SCH (08:08)
[2020-07-05] MEDS: CYANOCOBALAMIN 1000 mCg TABLET PO SCH (08:08)
[2020-07-05] MEDS: FERROUS SULFATE 325 MG TABLET.DR PO SCH ×2 (08:08→20:59)
[2020-07-05] MEDS: PANTOPRAZOLE SODIUM 40 MG TAB PO SCH ×2 (08:08→21:00)
[2020-07-05] MEDS: CHOLECALCIFEROL (VITAMIN D3) 2,000 UNIT TABLET PO SCH (08:08)
[2020-07-05] MEDS: ENOXAPARIN SODIUM 40 MG/0.4 ML SYRINGE SUBCUT SCH (08:10)
[2020-07-05 08:14] LABS: CALCIUM 7.9 mg/dL (8.4-11.0); CHLORIDE 92 mmol/L (98-107); CREATININE 0.27 mg/dL (0.55-1.30); GLUCOSE 170 mg/dL (70-99); SODIUM SERUM 140 mmol/L (136-145); UREA NITROGEN, BLOOD 16 mg/dL (8-21)
[2020-07-05] MEDS: Effexor 37.5 MG TAB PO SCH (08:23)
[2020-07-05 08:52] LABS: ANION GAP 0 (5-15)
[2020-07-05] MEDS: KCL 10 mEq in D5/0.45NS 1000mL 1,000 ML IV SCH (16:42)
[2020-07-06] VITALS (25 sets, daily range): BP systolic 103–159
[2020-07-06] MEDS: INSULIN LISPRO SLIDING SCALE 100 UNITS/ML VIAL (humaLOG) SUBCUT PRN (05:31)
[2020-07-06] MEDS: FUROSEMIDE 40 MG/4 ML VIAL IVP SCH ×3 (06:00→21:05)
[2020-07-06 07:16] LABS: BASOPHILS % (AUTO) 0.5 % (0.0-2.0); EOSINOPHILS % (AUTO) 0.1 % (0.0-4.0); HEMATOCRIT 24.1 % (36-48); HEMOGLOBIN 7.4 g/dL (12.0-16.0); LYMPHOCYTES # (AUTO) 0.3 K/uL (1.0-5.5); MEAN CORPUSCULAR HEMOGLOBIN 26 pg (27-31); MEAN CORPUSCULAR HGB CONC 31 % (32-36); MEAN CORPUSCULAR VOLUME 85 fL (79.0-98.0); MONOCYTES # (AUTO) 0.5 K/uL (0.0-1.0); MONOCYTES % (AUTO) 8.2 % (1.7-9.3); NEUTROPHILS # (AUTO) 4.8 K/uL (1.8-7.7); NEUTROPHILS % (AUTO) 85.2 % (40.0-70.0); PLATELET COUNT (AUTO) 200 K/uL (130-430); RED BLOOD CELL COUNT(AUTO) 2.83 MIL/uL (4.2-6.2); RED CELL DISTRIBUTION WIDTH 15.6 % (9.0-15.0); WHITE BLOOD COUNT (AUTO) 5.7 K/uL (4.8-10.8)
[2020-07-06 07:48] LABS: ALANINE AMINOTRANSFERASE 15 U/L (12-78); ALBUMIN 1.9 g/dL (3.4-4.8); ASPARTATE AMINOTRANSFERASE 14 U/L (10-37); CALCIUM 7.6 mg/dL (8.4-11.0); CHLORIDE 93 mmol/L (98-107); CREATININE 0.31 mg/dL (0.55-1.30); GLUCOSE 147 mg/dL (70-99); POTASSIUM 3.3 mmol/L (3.5-5.1); SODIUM SERUM 141 mmol/L (136-145); TOTAL BILIRUBIN 0.3 mg/dL (0.0-1.0); UREA NITROGEN, BLOOD 17 mg/dL (8-21)
[2020-07-06] MEDS: LEVOTHYROXINE SODIUM 0.088 MG TABLET PO SCH (08:07)
[2020-07-06] MEDS: methylPREDNISolone SOD SUCC 40 MG/ML VIAL IVP SCH (08:07)
[2020-07-06] MEDS: PANTOPRAZOLE SODIUM 40 MG TAB PO SCH ×2 (08:08→21:03)
[2020-07-06] MEDS: FERROUS SULFATE 325 MG TABLET.DR PO SCH ×2 (08:08→21:03)
[2020-07-06] MEDS: FOLIC ACID 1 MG TABLET PO SCH (08:08)
[2020-07-06] MEDS: DILTIAZEM HCL 180 MG CAP.SR.24H PO SCH (08:08)
[2020-07-06] MEDS: DOCUSATE SODIUM 100 MG/10 ML UDC PO SCH (08:08)
[2020-07-06] MEDS: Effexor 37.5 MG TAB PO SCH (08:08)
[2020-07-06] MEDS: ASCORBIC ACID 500 MG TABLET PO SCH (08:09)
[2020-07-06] MEDS: CYANOCOBALAMIN 1000 mCg TABLET PO SCH (08:09)
[2020-07-06] MEDS: ENOXAPARIN SODIUM 40 MG/0.4 ML SYRINGE SUBCUT SCH (08:09)
[2020-07-06] MEDS: CHOLECALCIFEROL (VITAMIN D3) 2,000 UNIT TABLET PO SCH (08:09)
[2020-07-06] MEDS: ALLOPURINOL 300 MG TABLET (ZYLOPRIM) PO SCH (08:09)
[2020-07-06 10:11] LABS: ANION GAP -15 (5-15)
[2020-07-06] MEDS: KCL 10 mEq in D5/0.45NS 1000mL 1,000 ML IV SCH (11:09)
[2020-07-06] MEDS ORDERED: POTASSIUM CHLORIDE 20 MEQ TAB.PRT.SR NG ONE (11:45)
[2020-07-06] MEDS: ALPRAZolam 0.25 MG TABLET PO PRN (21:06)
[2020-07-07] VITALS (24 sets, daily range): BP systolic 101–133
[2020-07-07] MEDS: INSULIN LISPRO SLIDING SCALE 100 UNITS/ML VIAL (humaLOG) SUBCUT PRN ×2 (00:11→12:22)
[2020-07-07] MEDS: FUROSEMIDE 40 MG/4 ML VIAL IVP SCH ×3 (05:11→21:34)
[2020-07-07 07:47] LABS: BASOPHILS # (AUTO) 0.1 K/uL (0.0-0.2); BASOPHILS % (AUTO) 0.6 % (0.0-2.0); EOSINOPHILS % (AUTO) 0.1 % (0.0-4.0); HEMATOCRIT 25.7 % (36-48); HEMOGLOBIN 7.9 g/dL (12.0-16.0); LYMPHOCYTES # (AUTO) 0.4 K/uL (1.0-5.5); LYMPHOCYTES % (AUTO) 4.2 % (20.5-51.5); MEAN CORPUSCULAR HEMOGLOBIN 26 pg (27-31); MEAN CORPUSCULAR HGB CONC 31 % (32-36); MEAN CORPUSCULAR VOLUME 85 fL (79.0-98.0); MONOCYTES # (AUTO) 0.6 K/uL (0.0-1.0); MONOCYTES % (AUTO) 6.9 % (1.7-9.3); NEUTROPHILS # (AUTO) 7.7 K/uL (1.8-7.7); NEUTROPHILS % (AUTO) 88.2 % (40.0-70.0); PLATELET COUNT (AUTO) 167 K/uL (130-430); RED BLOOD CELL COUNT(AUTO) 3.05 MIL/uL (4.2-6.2); RED CELL DISTRIBUTION WIDTH 15.6 % (9.0-15.0); WHITE BLOOD COUNT (AUTO) 8.7 K/uL (4.8-10.8)
[2020-07-07] MEDS: KCL 10 mEq in D5/0.45NS 1000mL 1,000 ML IV SCH (07:48)
[2020-07-07] MEDS: LEVOTHYROXINE SODIUM 0.088 MG TABLET PO SCH (08:10)
[2020-07-07] MEDS: methylPREDNISolone SOD SUCC 40 MG/ML VIAL IVP SCH (08:10)
[2020-07-07] MEDS: DILTIAZEM HCL 180 MG CAP.SR.24H PO SCH (08:11)
[2020-07-07] MEDS: DOCUSATE SODIUM 100 MG/10 ML UDC PO SCH (08:11)
[2020-07-07 08:12] LABS: CALCIUM 7.6 mg/dL (8.4-11.0); CHLORIDE 91 mmol/L (98-107); CREATININE 0.39 mg/dL (0.55-1.30); GLUCOSE 157 mg/dL (70-99); POTASSIUM 3.6 mmol/L (3.5-5.1); SODIUM SERUM 136 mmol/L (136-145); UREA NITROGEN, BLOOD 16 mg/dL (8-21)
[2020-07-07] MEDS: POTASSIUM CHLORIDE 20 MEQ/PKT PACKET PO SCH (08:12)
[2020-07-07] MEDS: CYANOCOBALAMIN 1000 mCg TABLET PO SCH (08:12)
[2020-07-07] MEDS: FOLIC ACID 1 MG TABLET PO SCH (08:12)
[2020-07-07] MEDS: FERROUS SULFATE 325 MG TABLET.DR PO SCH ×2 (08:12→20:47)
[2020-07-07] MEDS: PANTOPRAZOLE SODIUM 40 MG TAB PO SCH ×2 (08:12→20:47)
[2020-07-07] MEDS: Effexor 37.5 MG TAB PO SCH (08:12)
[2020-07-07] MEDS: ASCORBIC ACID 500 MG TABLET PO SCH (08:16)
[2020-07-07] MEDS: ALLOPURINOL 300 MG TABLET (ZYLOPRIM) PO SCH (08:16)
[2020-07-07] MEDS: CHOLECALCIFEROL (VITAMIN D3) 2,000 UNIT TABLET PO SCH (08:16)
[2020-07-07] MEDS: ENOXAPARIN SODIUM 40 MG/0.4 ML SYRINGE SUBCUT SCH (08:16)
[2020-07-07 08:53] LABS: ANION GAP < 3 (5-15)
[2020-07-07] MEDS: CEFEPIME 0.5 GM in D5W 50 ML IV SCH ×2 (09:00→20:53)
[2020-07-07] MEDS: ALPRAZolam 0.25 MG TABLET PO PRN (20:48)
[2020-07-08] VITALS (21 sets, daily range): BP systolic 105–143
[2020-07-08 05:22] LABS: CALCIUM 7.6 mg/dL (8.4-11.0); CHLORIDE 91 mmol/L (98-107); CREATININE 0.53 mg/dL (0.55-1.30); GLUCOSE 336 mg/dL (70-99); POTASSIUM 4.2 mmol/L (3.5-5.1); SODIUM SERUM 139 mmol/L (136-145); UREA NITROGEN, BLOOD 17 mg/dL (8-21)
[2020-07-08] MEDS: CEFEPIME 0.5 GM in D5W 50 ML IV SCH (05:44)
[2020-07-08] MEDS: KCL 10 mEq in D5/0.45NS 1000mL 1,000 ML IV SCH (05:45)
[2020-07-08 06:01] LABS: ANION GAP -7 (5-15)
[2020-07-08] MEDS: LEVOTHYROXINE SODIUM 0.088 MG TABLET PO SCH (06:32)
[2020-07-08] MEDS: FUROSEMIDE 40 MG/4 ML VIAL IVP SCH (06:36)
[2020-07-08] MEDS: ENOXAPARIN SODIUM 40 MG/0.4 ML SYRINGE SUBCUT SCH (09:07)
[2020-07-08] MEDS: DOCUSATE SODIUM 100 MG/10 ML UDC PO SCH (09:07)
[2020-07-08] MEDS: FOLIC ACID 1 MG TABLET PO SCH (09:07)
[2020-07-08] MEDS: FERROUS SULFATE 325 MG TABLET.DR PO SCH ×2 (09:08→21:15)
[2020-07-08] MEDS: POTASSIUM CHLORIDE 20 MEQ/PKT PACKET PO SCH (09:08)
[2020-07-08] MEDS: DILTIAZEM HCL 180 MG CAP.SR.24H PO SCH (09:09)
[2020-07-08] MEDS: ALLOPURINOL 300 MG TABLET (ZYLOPRIM) PO SCH (09:09)
[2020-07-08] MEDS: PANTOPRAZOLE SODIUM 40 MG TAB PO SCH ×2 (09:09→21:16)
[2020-07-08] MEDS: methylPREDNISolone SOD SUCC 40 MG/ML VIAL IVP SCH (09:09)
[2020-07-08] MEDS: ASCORBIC ACID 500 MG TABLET PO SCH (09:09)
[2020-07-08] MEDS: CHOLECALCIFEROL (VITAMIN D3) 2,000 UNIT TABLET PO SCH (09:10)
[2020-07-08] MEDS: Effexor 37.5 MG TAB PO SCH (09:30)
[2020-07-08] MEDS: CYANOCOBALAMIN 1000 mCg TABLET PO SCH (12:00)
[2020-07-08] MEDS: INSULIN LISPRO SLIDING SCALE 100 UNITS/ML VIAL (humaLOG) SUBCUT PRN (18:39)
[2020-07-09] VITALS (17 sets, daily range): BP systolic 96–141
[2020-07-09 06:28] LABS: HEMATOCRIT 24.1 % (36-48); HEMOGLOBIN 7.5 g/dL (12.0-16.0); LYMPHOCYTES # (AUTO) 0.4 K/uL (1.0-5.5); LYMPHOCYTES % (AUTO) 4.1 % (20.5-51.5); MEAN CORPUSCULAR HEMOGLOBIN 26 pg (27-31); MEAN CORPUSCULAR HGB CONC 31 % (32-36); MEAN CORPUSCULAR VOLUME 85 fL (79.0-98.0); MONOCYTES # (AUTO) 0.4 K/uL (0.0-1.0); MONOCYTES % (AUTO) 3.8 % (1.7-9.3); NEUTROPHILS # (AUTO) 9.3 K/uL (1.8-7.7); NEUTROPHILS % (AUTO) 92.1 % (40.0-70.0); PLATELET COUNT (AUTO) 176 K/uL (130-430); RED BLOOD CELL COUNT(AUTO) 2.84 MIL/uL (4.2-6.2); RED CELL DISTRIBUTION WIDTH 15.7 % (9.0-15.0); WHITE BLOOD COUNT (AUTO) 10.1 K/uL (4.8-10.8)
[2020-07-09] MEDS: LEVOTHYROXINE SODIUM 0.088 MG TABLET PO SCH (07:21)
[2020-07-09 07:45] LABS: CALCIUM 7.9 mg/dL (8.4-11.0); CHLORIDE 90 mmol/L (98-107); CREATININE 0.34 mg/dL (0.55-1.30); GLUCOSE 164 mg/dL (70-99); POTASSIUM 3.8 mmol/L (3.5-5.1); SODIUM SERUM 137 mmol/L (136-145); UREA NITROGEN, BLOOD 18 mg/dL (8-21)
[2020-07-09 09:00] LABS: ANION GAP 0 (5-15)
[2020-07-09] MEDS: CEFEPIME 0.5 GM in D5W 50 ML IV SCH ×3 (09:00→21:14)
[2020-07-09 09:34] LABS: C-REACTIVE PROTEIN QUANT 1.1 mg/dL (0-0.5)
[2020-07-09] MEDS: DOCUSATE SODIUM 100 MG/10 ML UDC PO SCH (09:58)
[2020-07-09] MEDS: DILTIAZEM HCL 180 MG CAP.SR.24H PO SCH (09:59)
[2020-07-09] MEDS: FERROUS SULFATE 325 MG TABLET.DR PO SCH ×2 (10:00→21:13)
[2020-07-09] MEDS: PANTOPRAZOLE SODIUM 40 MG TAB PO SCH ×2 (10:00→21:14)
[2020-07-09] MEDS: KCL 10 mEq in D5/0.45NS 1000mL 1,000 ML IV SCH ×2 (10:00→20:22)
[2020-07-09] MEDS: ASCORBIC ACID 500 MG TABLET PO SCH (10:00)
[2020-07-09] MEDS: CHOLECALCIFEROL (VITAMIN D3) 2,000 UNIT TABLET PO SCH (10:00)
[2020-07-09] MEDS: FOLIC ACID 1 MG TABLET PO SCH (10:00)
[2020-07-09] MEDS: ALLOPURINOL 300 MG TABLET (ZYLOPRIM) PO SCH (10:00)
[2020-07-09] MEDS: Effexor 37.5 MG TAB PO SCH (12:09)
[2020-07-09] MEDS: CYANOCOBALAMIN 1000 mCg TABLET PO SCH (12:10)
[2020-07-09] MEDS: POTASSIUM CHLORIDE 20 MEQ/PKT PACKET PO SCH (12:11)
[2020-07-09] MEDS: methylPREDNISolone SOD SUCC 40 MG/ML VIAL IVP SCH (12:11)
[2020-07-09] MEDS: ENOXAPARIN SODIUM 40 MG/0.4 ML SYRINGE SUBCUT SCH (12:14)
[2020-07-09 12:39] LABS: ERYTHROCYTE SEDIMENTATION RATE 18 MM/HR (0-20)
[2020-07-09] MEDS: INSULIN LISPRO SLIDING SCALE 100 UNITS/ML VIAL (humaLOG) SUBCUT PRN (23:51)
[2020-07-10] VITALS (18 sets, daily range): BP systolic 111–144
[2020-07-10] MEDS: KCL 10 mEq in D5/0.45NS 1000mL 1,000 ML IV SCH (06:18)
[2020-07-10 07:07] LABS: BASOPHILS # (AUTO) 0.1 K/uL (0.0-0.2); BASOPHILS % (AUTO) 0.8 % (0.0-2.0); HEMATOCRIT 23.6 % (36-48); HEMOGLOBIN 7.3 g/dL (12.0-16.0); LYMPHOCYTES # (AUTO) 0.6 K/uL (1.0-5.5); LYMPHOCYTES % (AUTO) 5.8 % (20.5-51.5); MEAN CORPUSCULAR HEMOGLOBIN 26 pg (27-31); MEAN CORPUSCULAR HGB CONC 31 % (32-36); MEAN CORPUSCULAR VOLUME 85 fL (79.0-98.0); MONOCYTES # (AUTO) 0.5 K/uL (0.0-1.0); MONOCYTES % (AUTO) 5.7 % (1.7-9.3); NEUTROPHILS # (AUTO) 8.3 K/uL (1.8-7.7); NEUTROPHILS % (AUTO) 87.7 % (40.0-70.0); PLATELET COUNT (AUTO) 168 K/uL (130-430); RED BLOOD CELL COUNT(AUTO) 2.78 MIL/uL (4.2-6.2); RED CELL DISTRIBUTION WIDTH 15.8 % (9.0-15.0); WHITE BLOOD COUNT (AUTO) 9.5 K/uL (4.8-10.8)
[2020-07-10 07:58] LABS: ALANINE AMINOTRANSFERASE 24 U/L (12-78); ALBUMIN 1.9 g/dL (3.4-4.8); ASPARTATE AMINOTRANSFERASE 19 U/L (10-37); CALCIUM 7.9 mg/dL (8.4-11.0); CHLORIDE 92 mmol/L (98-107); GLUCOSE 124 mg/dL (70-99); POTASSIUM 4.6 mmol/L (3.5-5.1); SODIUM SERUM 135 mmol/L (136-145); TOTAL BILIRUBIN 0.8 mg/dL (0.0-1.0); UREA NITROGEN, BLOOD 18 mg/dL (8-21)
[2020-07-10 09:32] LABS: CREATININE 0.33 mg/dL (0.55-1.30); ERYTHROCYTE SEDIMENTATION RATE 20 MM/HR (0-20)
[2020-07-10 09:41] LABS: ANION GAP < 3 (5-15)
[2020-07-10] MEDS: LEVOTHYROXINE SODIUM 0.088 MG TABLET PO SCH (09:55)
[2020-07-10] MEDS: CYANOCOBALAMIN 1000 mCg TABLET PO SCH (09:56)
[2020-07-10] MEDS: DOCUSATE SODIUM 100 MG/10 ML UDC PO SCH (09:56)
[2020-07-10] MEDS: FERROUS SULFATE 325 MG TABLET.DR PO SCH ×2 (09:56→20:25)
[2020-07-10] MEDS: methylPREDNISolone SOD SUCC 40 MG/ML VIAL IVP SCH (09:56)
[2020-07-10] MEDS: ALLOPURINOL 300 MG TABLET (ZYLOPRIM) PO SCH (09:57)
[2020-07-10] MEDS: PANTOPRAZOLE SODIUM 40 MG TAB PO SCH ×2 (09:57→20:25)
[2020-07-10] MEDS: ASCORBIC ACID 500 MG TABLET PO SCH (09:57)
[2020-07-10] MEDS: POTASSIUM CHLORIDE 20 MEQ/PKT PACKET PO SCH (09:57)
[2020-07-10] MEDS: CHOLECALCIFEROL (VITAMIN D3) 2,000 UNIT TABLET PO SCH (09:57)
[2020-07-10] MEDS: Effexor 37.5 MG TAB PO SCH (09:58)
[2020-07-10] MEDS: ENOXAPARIN SODIUM 40 MG/0.4 ML SYRINGE SUBCUT SCH (09:58)
[2020-07-10] MEDS: FOLIC ACID 1 MG TABLET PO SCH (09:58)
[2020-07-10] MEDS: DILTIAZEM HCL 180 MG CAP.SR.24H PO SCH (10:04)
[2020-07-10 10:18] LABS: C-REACTIVE PROTEIN QUANT 1.3 mg/dL (0-0.5)
[2020-07-10] MEDS: CEFEPIME 0.5 GM in D5W 50 ML IV SCH ×2 (12:46→20:25)
[2020-07-11] VITALS (18 sets, daily range): BP systolic 113–148
[2020-07-11] MEDS: LEVOTHYROXINE SODIUM 0.088 MG TABLET PO SCH (06:33)
[2020-07-11 07:55] LABS: CALCIUM 7.5 mg/dL (8.4-11.0); CHLORIDE 88 mmol/L (98-107); CREATININE 0.33 mg/dL (0.55-1.30); GLUCOSE 134 mg/dL (70-99); POTASSIUM 4.1 mmol/L (3.5-5.1); SODIUM SERUM 127 mmol/L (136-145); UREA NITROGEN, BLOOD 14 mg/dL (8-21)
[2020-07-11] MEDS: CHOLECALCIFEROL (VITAMIN D3) 2,000 UNIT TABLET PO SCH (08:52)
[2020-07-11] MEDS: ASCORBIC ACID 500 MG TABLET PO SCH (08:52)
[2020-07-11] MEDS: PANTOPRAZOLE SODIUM 40 MG TAB PO SCH ×2 (08:53→21:17)
[2020-07-11] MEDS: FOLIC ACID 1 MG TABLET PO SCH (08:53)
[2020-07-11] MEDS: FERROUS SULFATE 325 MG TABLET.DR PO SCH ×2 (08:53→21:16)
[2020-07-11] MEDS: DOCUSATE SODIUM 100 MG/10 ML UDC PO SCH (08:54)
[2020-07-11] MEDS: DILTIAZEM HCL 180 MG CAP.SR.24H PO SCH (08:54)
[2020-07-11] MEDS: ALLOPURINOL 300 MG TABLET (ZYLOPRIM) PO SCH (08:54)
[2020-07-11] MEDS: ENOXAPARIN SODIUM 40 MG/0.4 ML SYRINGE SUBCUT SCH (08:55)
[2020-07-11 09:19] LABS: ANION GAP 0 (5-15)
[2020-07-11] MEDS: methylPREDNISolone SOD SUCC 40 MG/ML VIAL IVP SCH (10:24)
[2020-07-11] MEDS: Effexor 37.5 MG TAB PO SCH (10:24)
[2020-07-11] MEDS: CYANOCOBALAMIN 1000 mCg TABLET PO SCH (10:25)
[2020-07-11] MEDS: NACL 0.9% 1,000 ML IV SCH (10:25)
[2020-07-11] MEDS: CEFEPIME 0.5 GM in D5W 50 ML IV SCH ×2 (10:25→21:16)
[2020-07-12] VITALS (16 sets, daily range): BP systolic 102–142
[2020-07-12] MEDS: NACL 0.9% 1,000 ML IV SCH ×2 (05:01→09:16)
[2020-07-12] MEDS: LEVOTHYROXINE SODIUM 0.088 MG TABLET PO SCH (07:00)
[2020-07-12 08:12] LABS: CALCIUM 7.8 mg/dL (8.4-11.0); CHLORIDE 91 mmol/L (98-107); CREATININE 0.22 mg/dL (0.55-1.30); GLUCOSE 101 mg/dL (70-99); POTASSIUM 4.4 mmol/L (3.5-5.1); SODIUM SERUM 130 mmol/L (136-145); UREA NITROGEN, BLOOD 16 mg/dL (8-21)
[2020-07-12 08:15] LABS: ANION GAP < 3 (5-15)
[2020-07-12] MEDS: Effexor 37.5 MG TAB PO SCH (09:00)
[2020-07-12] MEDS: DILTIAZEM HCL 180 MG CAP.SR.24H PO SCH (09:00)
[2020-07-12] MEDS: CYANOCOBALAMIN 1000 mCg TABLET PO SCH (09:00)
[2020-07-12] MEDS: CHOLECALCIFEROL (VITAMIN D3) 2,000 UNIT TABLET PO SCH (09:00)
[2020-07-12] MEDS: ALLOPURINOL 300 MG TABLET (ZYLOPRIM) PO SCH (09:00)
[2020-07-12] MEDS: DOCUSATE SODIUM 100 MG/10 ML UDC PO SCH (09:00)
[2020-07-12] MEDS: FERROUS SULFATE 325 MG TABLET.DR PO SCH ×2 (09:00→21:00)
[2020-07-12] MEDS: FOLIC ACID 1 MG TABLET PO SCH (09:00)
[2020-07-12] MEDS: PANTOPRAZOLE SODIUM 40 MG TAB PO SCH ×2 (09:00→21:00)
[2020-07-12] MEDS: ASCORBIC ACID 500 MG TABLET PO SCH (09:00)
[2020-07-12] MEDS: methylPREDNISolone SOD SUCC 40 MG/ML VIAL IVP SCH (09:29)
[2020-07-12] MEDS: CEFEPIME 0.5 GM in D5W 50 ML IV SCH ×2 (09:29→22:02)
[2020-07-12] MEDS: ENOXAPARIN SODIUM 40 MG/0.4 ML SYRINGE SUBCUT SCH (09:32)
[2020-07-13 00:37] VITALS: BP_SYST 118
[2020-07-13] MEDS: LEVOTHYROXINE SODIUM 0.088 MG TABLET PO SCH (06:02)
[2020-07-13 06:38] LABS: BASOPHILS % (AUTO) 0.6 % (0.0-2.0); EOSINOPHILS % (AUTO) 0.6 % (0.0-4.0); HEMATOCRIT 22.8 % (36-48); HEMOGLOBIN 7.2 g/dL (12.0-16.0); LYMPHOCYTES # (AUTO) 0.5 K/uL (1.0-5.5); LYMPHOCYTES % (AUTO) 9.7 % (20.5-51.5); MEAN CORPUSCULAR HEMOGLOBIN 26 pg (27-31); MEAN CORPUSCULAR HGB CONC 32 % (32-36); MEAN CORPUSCULAR VOLUME 84 fL (79.0-98.0); MONOCYTES # (AUTO) 0.6 K/uL (0.0-1.0); MONOCYTES % (AUTO) 11.6 % (1.7-9.3); NEUTROPHILS # (AUTO) 3.9 K/uL (1.8-7.7); NEUTROPHILS % (AUTO) 77.5 % (40.0-70.0); PLATELET COUNT (AUTO) 263 K/uL (130-430); RED BLOOD CELL COUNT(AUTO) 2.73 MIL/uL (4.2-6.2); RED CELL DISTRIBUTION WIDTH 15.4 % (9.0-15.0)
[2020-07-13 06:55] LABS: CALCIUM 7.5 mg/dL (8.4-11.0); CHLORIDE 92 mmol/L (98-107); CREATININE 0.36 mg/dL (0.55-1.30); GLUCOSE 81 mg/dL (70-99); POTASSIUM 3.9 mmol/L (3.5-5.1); SODIUM SERUM 134 mmol/L (136-145); UREA NITROGEN, BLOOD 13 mg/dL (8-21)
[2020-07-13 07:36] LABS: ANION GAP 5 (5-15)
[2020-07-13 08:30] VITALS: BP_SYST 146
[2020-07-13] MEDS: PANTOPRAZOLE SODIUM 40 MG TAB PO SCH ×2 (09:00→21:00)
[2020-07-13] MEDS: DILTIAZEM HCL 180 MG CAP.SR.24H PO SCH (09:00)
[2020-07-13] MEDS: Effexor 37.5 MG TAB PO SCH (09:00)
[2020-07-13] MEDS: DOCUSATE SODIUM 100 MG/10 ML UDC PO SCH (09:00)
[2020-07-13] MEDS: ENOXAPARIN SODIUM 40 MG/0.4 ML SYRINGE SUBCUT SCH (09:00)
[2020-07-13] MEDS: CHOLECALCIFEROL (VITAMIN D3) 2,000 UNIT TABLET PO SCH (09:00)
[2020-07-13] MEDS: ALLOPURINOL 300 MG TABLET (ZYLOPRIM) PO SCH (09:00)
[2020-07-13] MEDS: FERROUS SULFATE 325 MG TABLET.DR PO SCH ×2 (09:00→21:00)
[2020-07-13] MEDS: FOLIC ACID 1 MG TABLET PO SCH (09:00)
[2020-07-13] MEDS: ASCORBIC ACID 500 MG TABLET PO SCH (09:00)
[2020-07-13] MEDS: CYANOCOBALAMIN 1000 mCg TABLET PO SCH (09:00)
[2020-07-13] MEDS: methylPREDNISolone SOD SUCC 40 MG/ML VIAL IVP SCH (10:06)
[2020-07-13] MEDS: CEFEPIME 0.5 GM in D5W 50 ML IV SCH ×2 (10:06→21:00)
[2020-07-13 12:30] VITALS: BP_SYST 136
[2020-07-13 16:30] VITALS: BP_SYST 100
[2020-07-13] MEDS ORDERED: D5NS 500 ML IV SCH (18:45)
[2020-07-13] MEDS ORDERED: DEXTROSE 50% JECT 50 ML DISP.SYRIN IVP ONE (18:45)
[2020-07-13] MEDS ORDERED: DEXTROSE 50% JECT 50 ML DISP.SYRIN ONE (18:53)
[2020-07-13] MEDS: D5NS 1,000 ML IV SCH (19:20)
[2020-07-13 20:00] VITALS: BP_SYST 139
[2020-07-13] MEDS: NACL 0.9% 1,000 ML IV SCH (21:45)
[2020-07-14 00:15] VITALS: BP_SYST 122
[2020-07-14] MEDS: LEVOTHYROXINE SODIUM 0.088 MG TABLET PO SCH (07:00)
[2020-07-14 08:00] VITALS: BP_SYST 117
[2020-07-14 08:17] LABS: ANION GAP 3 (5-15); CHLORIDE 95 mmol/L (98-107); CREATININE 0.37 mg/dL (0.55-1.30); GLUCOSE 92 mg/dL (70-99); POTASSIUM 3.8 mmol/L (3.5-5.1); SODIUM SERUM 134 mmol/L (136-145); UREA NITROGEN, BLOOD 14 mg/dL (8-21)
[2020-07-14] MEDS: FOLIC ACID 1 MG TABLET PO SCH (09:00)
[2020-07-14] MEDS: ALLOPURINOL 300 MG TABLET (ZYLOPRIM) PO SCH (09:00)
[2020-07-14] MEDS: DILTIAZEM HCL 180 MG CAP.SR.24H PO SCH (09:00)
[2020-07-14] MEDS: Effexor 37.5 MG TAB PO SCH (09:00)
[2020-07-14] MEDS: FERROUS SULFATE 325 MG TABLET.DR PO SCH ×2 (09:00→21:52)
[2020-07-14] MEDS: PANTOPRAZOLE SODIUM 40 MG TAB PO SCH ×2 (09:00→21:52)
[2020-07-14] MEDS: CHOLECALCIFEROL (VITAMIN D3) 2,000 UNIT TABLET PO SCH (09:00)
[2020-07-14] MEDS: CYANOCOBALAMIN 1000 mCg TABLET PO SCH (09:00)
[2020-07-14] MEDS: ASCORBIC ACID 500 MG TABLET PO SCH (09:00)
[2020-07-14] MEDS: DOCUSATE SODIUM 100 MG/10 ML UDC PO SCH (09:00)
[2020-07-14] MEDS: D5NS 1,000 ML IV SCH ×2 (09:03→23:21)
[2020-07-14] MEDS: CEFEPIME 0.5 GM in D5W 50 ML IV SCH ×2 (10:04→21:52)
[2020-07-14] MEDS: methylPREDNISolone SOD SUCC 40 MG/ML VIAL IVP SCH (10:05)
[2020-07-14] MEDS: ENOXAPARIN SODIUM 40 MG/0.4 ML SYRINGE SUBCUT SCH (10:05)
[2020-07-14 12:00] VITALS: BP_SYST 105
[2020-07-14 16:30] VITALS: BP_SYST 105
[2020-07-14] MEDS ORDERED: MENTHOL/ZINC OXIDE 113 GM OINT. TP PRN (19:45)
[2020-07-14 20:00] VITALS: BP_SYST 108
[2020-07-15 00:22] VITALS: BP_SYST 110
[2020-07-15] MEDS: LEVOTHYROXINE SODIUM 0.088 MG TABLET PO SCH (07:04)
[2020-07-15 08:32] VITALS: BP_SYST 112
[2020-07-15 08:41] VITALS: BP_SYST 112
[2020-07-15] MEDS: CYANOCOBALAMIN 1000 mCg TABLET PO SCH (09:00)
[2020-07-15] MEDS: methylPREDNISolone SOD SUCC 40 MG/ML VIAL IVP SCH (09:28)
[2020-07-15] MEDS: CEFEPIME 0.5 GM in D5W 50 ML IV SCH ×2 (09:28→21:43)
[2020-07-15] MEDS: FERROUS SULFATE 325 MG TABLET.DR PO SCH ×2 (09:29→21:44)
[2020-07-15] MEDS: DOCUSATE SODIUM 100 MG/10 ML UDC PO SCH (09:29)
[2020-07-15] MEDS: DILTIAZEM HCL 180 MG CAP.SR.24H PO SCH (09:29)
[2020-07-15] MEDS: Effexor 37.5 MG TAB PO SCH (09:29)
[2020-07-15] MEDS: ASCORBIC ACID 500 MG TABLET PO SCH (09:30)
[2020-07-15] MEDS: PANTOPRAZOLE SODIUM 40 MG TAB PO SCH ×2 (09:30→21:44)
[2020-07-15] MEDS: CHOLECALCIFEROL (VITAMIN D3) 2,000 UNIT TABLET PO SCH (09:30)
[2020-07-15] MEDS: ALLOPURINOL 300 MG TABLET (ZYLOPRIM) PO SCH (09:30)
[2020-07-15] MEDS: FOLIC ACID 1 MG TABLET PO SCH (09:30)
[2020-07-15] MEDS: ENOXAPARIN SODIUM 40 MG/0.4 ML SYRINGE SUBCUT SCH (09:31)
[2020-07-15] MEDS: BALSAM PERU/CASTOR OIL 60 GM OINT...G. TP SCH (09:31)
[2020-07-15 12:05] VITALS: BP_SYST 118
[2020-07-15] MEDS: D5NS 1,000 ML IV SCH (15:37)
[2020-07-15 16:10] VITALS: BP_SYST 104
[2020-07-15 23:14] VITALS: BP_SYST 106
[2020-07-16 00:38] VITALS: BP_SYST 103
[2020-07-16] MEDS: D5NS 1,000 ML IV SCH ×2 (04:00→18:15)
[2020-07-16] MEDS: LEVOTHYROXINE SODIUM 0.088 MG TABLET PO SCH (06:49)
[2020-07-16 08:00] VITALS: BP_SYST 108
[2020-07-16 08:45] LABS: BASOPHILS # (AUTO) 0.1 K/uL (0.0-0.2); BASOPHILS % (AUTO) 1.6 % (0.0-2.0); EOSINOPHILS # (AUTO) 0.1 K/uL (0.0-0.4); EOSINOPHILS % (AUTO) 0.9 % (0.0-4.0); LYMPHOCYTES # (AUTO) 0.5 K/uL (1.0-5.5); LYMPHOCYTES % (AUTO) 8.4 % (20.5-51.5); MEAN CORPUSCULAR HEMOGLOBIN 26 pg (27-31); MEAN CORPUSCULAR HGB CONC 31 % (32-36); MEAN CORPUSCULAR VOLUME 84 fL (79.0-98.0); MONOCYTES # (AUTO) 0.4 K/uL (0.0-1.0); MONOCYTES % (AUTO) 6.3 % (1.7-9.3); NEUTROPHILS # (AUTO) 5.4 K/uL (1.8-7.7); NEUTROPHILS % (AUTO) 82.8 % (40.0-70.0); PLATELET COUNT (AUTO) 255 K/uL (130-430); RED BLOOD CELL COUNT(AUTO) 2.76 MIL/uL (4.2-6.2); WHITE BLOOD COUNT (AUTO) 6.5 K/uL (4.8-10.8)
[2020-07-16] MEDS: CYANOCOBALAMIN 1000 mCg TABLET PO SCH (09:00)
[2020-07-16 09:28] LABS: ALANINE AMINOTRANSFERASE 30 U/L (12-78); ALBUMIN 2.2 g/dL (3.4-4.8); ANION GAP 3 (5-15); ASPARTATE AMINOTRANSFERASE 17 U/L (10-37); CALCIUM 7.6 mg/dL (8.4-11.0); CHLORIDE 98 mmol/L (98-107); CREATININE 0.31 mg/dL (0.55-1.30); GLUCOSE 91 mg/dL (70-99); POTASSIUM 3.2 mmol/L (3.5-5.1); SODIUM SERUM 137 mmol/L (136-145); TOTAL BILIRUBIN 0.6 mg/dL (0.0-1.0); UREA NITROGEN, BLOOD 14 mg/dL (8-21)
[2020-07-16] MEDS ORDERED: POTASSIUM CHLORIDE 40 MEQ, LIDOCAINE JECT 2% PF 100 MG 50 MG in NS 250 ML IV ONE (09:45)
[2020-07-16] MEDS: FERROUS SULFATE 325 MG TABLET.DR PO SCH ×2 (10:11→21:20)
[2020-07-16] MEDS: methylPREDNISolone SOD SUCC 40 MG/ML VIAL IVP SCH (10:11)
[2020-07-16] MEDS: DOCUSATE SODIUM 100 MG/10 ML UDC PO SCH (10:11)
[2020-07-16] MEDS: FOLIC ACID 1 MG TABLET PO SCH (10:11)
[2020-07-16] MEDS: MEGESTROL ACETATE 400 MG/10 ML UDC PO SCH ×2 (10:12→21:20)
[2020-07-16] MEDS: PANTOPRAZOLE SODIUM 40 MG TAB PO SCH ×2 (10:12→21:20)
[2020-07-16] MEDS: CHOLECALCIFEROL (VITAMIN D3) 2,000 UNIT TABLET PO SCH (10:13)
[2020-07-16] MEDS: ASCORBIC ACID 500 MG TABLET PO SCH (10:13)
[2020-07-16] MEDS: ALLOPURINOL 300 MG TABLET (ZYLOPRIM) PO SCH (10:13)
[2020-07-16] MEDS: ENOXAPARIN SODIUM 40 MG/0.4 ML SYRINGE SUBCUT SCH (10:13)
[2020-07-16] MEDS: Effexor 37.5 MG TAB PO SCH (10:14)
[2020-07-16] MEDS: BALSAM PERU/CASTOR OIL 60 GM OINT...G. TP SCH (10:14)
[2020-07-16] MEDS: DILTIAZEM HCL 180 MG CAP.SR.24H PO SCH (10:49)
[2020-07-16 12:13] VITALS: BP_SYST 117
[2020-07-16 16:10] VITALS: BP_SYST 119
[2020-07-16 23:00] VITALS: BP_SYST 121
[2020-07-17] VITALS: BP_SYST 121
[2020-07-17 08:00] VITALS: BP_SYST 136
[2020-07-17 08:50] LABS: ANION GAP 3 (5-15); CALCIUM 8.2 mg/dL (8.4-11.0); CHLORIDE 98 mmol/L (98-107); CREATININE 0.32 mg/dL (0.55-1.30); GLUCOSE 109 mg/dL (70-99); POTASSIUM 3.8 mmol/L (3.5-5.1); SODIUM SERUM 137 mmol/L (136-145); UREA NITROGEN, BLOOD 14 mg/dL (8-21)
[2020-07-17] MEDS: methylPREDNISolone SOD SUCC 40 MG/ML VIAL IVP SCH (09:26)
[2020-07-17] MEDS: DOCUSATE SODIUM 100 MG/10 ML UDC PO SCH (09:26)
[2020-07-17] MEDS: DILTIAZEM HCL 180 MG CAP.SR.24H PO SCH (09:26)
[2020-07-17] MEDS: PANTOPRAZOLE SODIUM 40 MG TAB PO SCH ×2 (09:27→21:00)
[2020-07-17] MEDS: Effexor 37.5 MG TAB PO SCH (09:27)
[2020-07-17] MEDS: FOLIC ACID 1 MG TABLET PO SCH (09:27)
[2020-07-17] MEDS: MEGESTROL ACETATE 400 MG/10 ML UDC PO SCH ×2 (09:27→21:00)
[2020-07-17] MEDS: FERROUS SULFATE 325 MG TABLET.DR PO SCH ×2 (09:27→21:00)
[2020-07-17] MEDS: ASCORBIC ACID 500 MG TABLET PO SCH (09:28)
[2020-07-17] MEDS: ALLOPURINOL 300 MG TABLET (ZYLOPRIM) PO SCH (09:28)
[2020-07-17] MEDS: CHOLECALCIFEROL (VITAMIN D3) 2,000 UNIT TABLET PO SCH (09:28)
[2020-07-17] MEDS: BALSAM PERU/CASTOR OIL 60 GM OINT...G. TP SCH (09:28)
[2020-07-17] MEDS: ENOXAPARIN SODIUM 40 MG/0.4 ML SYRINGE SUBCUT SCH (09:29)
[2020-07-17] MEDS: LEVOTHYROXINE SODIUM 0.088 MG TABLET PO SCH (09:30)
[2020-07-17] MEDS: CYANOCOBALAMIN 1000 mCg TABLET PO SCH (09:30)
[2020-07-17] MEDS: D5NS 1,000 ML IV SCH ×2 (10:45→22:57)
[2020-07-17 13:38] VITALS: BP_SYST 134
[2020-07-17] MEDS: INSULIN LISPRO SLIDING SCALE 100 UNITS/ML VIAL (humaLOG) SUBCUT PRN (16:45)
[2020-07-17] MEDS ORDERED: FUROSEMIDE 40 MG/4 ML VIAL IVP ONE (17:00)
[2020-07-17 17:07] VITALS: BP_SYST 139
[2020-07-17 23:37] VITALS: BP_SYST 125
[2020-07-18 01:37] VITALS: BP_SYST 126
[2020-07-18 07:54] LABS: HEMATOCRIT 23.8 % (36-48); HEMOGLOBIN 7.3 g/dL (12.0-16.0); MEAN CORPUSCULAR HEMOGLOBIN 26 pg (27-31); MEAN CORPUSCULAR HGB CONC 31 % (32-36); MEAN CORPUSCULAR VOLUME 83 fL (79.0-98.0); PLATELET COUNT (AUTO) 181 K/uL (130-430); RED BLOOD CELL COUNT(AUTO) 2.86 MIL/uL (4.2-6.2); RED CELL DISTRIBUTION WIDTH 16.3 % (9.0-15.0); WHITE BLOOD COUNT (AUTO) 9.6 K/uL (4.8-10.8)
[2020-07-18 08:00] VITALS: BP_SYST 148
[2020-07-18] MEDS ORDERED: methylPREDNISolone SOD SUCC 40 MG/ML VIAL IVP SCH (09:00)
[2020-07-18] MEDS: LEVOTHYROXINE SODIUM 0.088 MG TABLET PO SCH (09:24)
[2020-07-18] MEDS: DOCUSATE SODIUM 100 MG/10 ML UDC PO SCH (09:25)
[2020-07-18] MEDS: FERROUS SULFATE 325 MG TABLET.DR PO SCH (09:25)
[2020-07-18] MEDS: MEGESTROL ACETATE 400 MG/10 ML UDC PO SCH (09:25)
[2020-07-18] MEDS: FOLIC ACID 1 MG TABLET PO SCH (09:25)
[2020-07-18] MEDS: DILTIAZEM HCL 180 MG CAP.SR.24H PO SCH (09:25)
[2020-07-18] MEDS: Effexor 37.5 MG TAB PO SCH (09:25)
[2020-07-18] MEDS: CYANOCOBALAMIN 1000 mCg TABLET PO SCH (09:25)
[2020-07-18] MEDS: PANTOPRAZOLE SODIUM 40 MG TAB PO SCH (09:25)
[2020-07-18] MEDS: ALLOPURINOL 300 MG TABLET (ZYLOPRIM) PO SCH (09:26)
[2020-07-18] MEDS: ASCORBIC ACID 500 MG TABLET PO SCH (09:26)
[2020-07-18] MEDS: CHOLECALCIFEROL (VITAMIN D3) 2,000 UNIT TABLET PO SCH (09:26)
[2020-07-18] MEDS: ENOXAPARIN SODIUM 40 MG/0.4 ML SYRINGE SUBCUT SCH (09:26)
[2020-07-18] MEDS: BALSAM PERU/CASTOR OIL 60 GM OINT...G. TP SCH (09:27)
[2020-07-18 11:17] LABS: LYMPHOCYTES % (MANUAL) 7 % (20-46)
[2020-07-18 11:18] LABS: BASOPHILS % (MANUAL) 0 % (0-2); EOSINOPHILS % (MANUAL) 0 % (0-7); MONOCYTES % (MANUAL) 5 % (0-11)
[2020-07-18 12:00] VITALS: BP_SYST 126
[2020-07-18 14:49] VITALS: BP_SYST 135
[2020-07-18] MEDS: D5NS 1,000 ML IV SCH (15:00)
[2020-07-18 17:00] VITALS: BP_SYST 126
[2020-07-18 18:15] VITALS: BP_SYST 183
[2020-07-19] MEDS ORDERED: predniSONE 10 MG TABLET PO SCH (09:00)
== END 2020-07-18 16:12 | DRG 871 ==
LOC: SED 11:11 → SIC 14:58 → STU 07-12 17:34
PROVIDERS: ADMIT Internal Medicine; ATTEND Internal Medicine
PROC: 5A09357 Assistance with Respiratory Ventilation, Less than 24 Consecutive Hours, Continuous Positive Airway Pressure (ICD-10-PCS; principal; 2020-06-21)
PROC: 5A09457 Assistance with Respiratory Ventilation, 24-96 Consecutive Hours, Continuous Positive Airway Pressure (ICD-10-PCS; 2020-06-25)
PROC: 5A09457 Assistance with Respiratory Ventilation, 24-96 Consecutive Hours, Continuous Positive Airway Pressure (ICD-10-PCS; 2020-07-02)
PROC: 5A09357 Assistance with Respiratory Ventilation, Less than 24 Consecutive Hours, Continuous Positive Airway Pressure (ICD-10-PCS; 2020-07-06)
PROC: 5A09357 Assistance with Respiratory Ventilation, Less than 24 Consecutive Hours, Continuous Positive Airway Pressure (ICD-10-PCS; 2020-07-08)
PROC: 5A09457 Assistance with Respiratory Ventilation, 24-96 Consecutive Hours, Continuous Positive Airway Pressure (ICD-10-PCS; 2020-07-09)
DX: A41.9 Sepsis, unspecified organism (principal); U07.1 COVID-19; E43 Unspecified severe protein-calorie malnutrition; G93.41 Metabolic encephalopathy; J12.82 Pneumonia due to coronavirus disease 2019; J15.6 Pneumonia due to other Gram-negative bacteria; J96.21 Acute and chronic respiratory failure with hypoxia; J96.22 Acute and chronic respiratory failure with hypercapnia; E87.2 Acidosis; I48.20 Chronic atrial fibrillation, unspecified; N39.0 Urinary tract infection, site not specified; Z16.12 Extended spectrum beta lactamase (ESBL) resistance; D68.59 Other primary thrombophilia; E66.2 Morbid (severe) obesity with alveolar hypoventilation; Z68.41 Body mass index [BMI] 40.0-44.9, adult; B96.20 Unspecified Escherichia coli [E. coli] as the cause of diseases classified elsewhere; D64.9 Anemia, unspecified; E03.9 Hypothyroidism, unspecified; E87.6 Hypokalemia; F03.90 Unspecified dementia, unspecified severity, without behavioral disturbance, psychotic disturbance, mood disturbance, and anxiety; I11.0 Hypertensive heart disease with heart failure; I25.10 Atherosclerotic heart disease of native coronary artery without angina pectoris; I50.9 Heart failure, unspecified; Y95 Nosocomial condition; I49.5 Sick sinus syndrome; K64.9 Unspecified hemorrhoids; R13.10 Dysphagia, unspecified; F31.9 Bipolar disorder, unspecified; R73.9 Hyperglycemia, unspecified; E83.51 Hypocalcemia; Z20.822 Contact with and (suspected) exposure to COVID-19; Z88.0 Allergy status to penicillin; Z74.01 Bed confinement status; Z85.3 Personal history of malignant neoplasm of breast; Z90.11 Acquired absence of right breast and nipple; Z78.1 Physical restraint status; Z95.0 Presence of cardiac pacemaker
CPT/HCPCS: 36415; 36600; 71045; 71250-TC; 74018; 76376; 76770; 80048; 80053; 81000-TC; 82607; 82728; 82746; 82803-TC; 82962; 83540-TC; 83550-TC; 83605; 83615-TC; 83735-TC; 83880; 84443-TC; 84484; 85007; 85025; 85027; 85379; 85610-TC; 85651-TC; 85730-TC; 86140; 86710; 87040-TC; 87081; 87086; 92610-GN; 93005; 93306; 94003; 94660; 94760; 97110-GP; 97112-GP; 97163; 97530-GP; 99285; J0456; J0692; J1030; J1100; J1650; J1940; J1956; J2185; J3475; J3480; J7030; J7042; J7050; J7060; Q0162; U0003